=== PATIENT | male | born 1970 | race Caucasian/White ===

== ENCOUNTER 2016-11-06 10:18 | Emergency (ER) | payer OTHER ==
[~2016-11-06] VITALS: Ht 167.6 cm; Wt 69.0 kg
[~2016-11-06 10:18] MED LIST: GLIP5 PO; MULT-71 PO
[2016-11-06] MEDS ORDERED: ONDANSETRON HCL 4 MG/2 ML VIAL IVP ONE (10:45)
[2016-11-06] MEDS ORDERED: PANTOPRAZOLE SODIUM 40 MG/VIAL IVP ONE (10:45)
[2016-11-06] MEDS ORDERED: SODIUM CHLORIDE 0.9% 1,000 ML IV ONE (10:45)
[2016-11-06 11:00] LABS: BASOPHILS % (AUTO) 0.4 % (0.0-2.0); EOSINOPHILS % (AUTO) 0.2 % (1.0-6.0); HEMATOCRIT 41.6 % (41-53); HEMOGLOBIN 14.1 g/dL (13.5-17.5); MEAN CORPUSCULAR HEMOGLOBIN 29.3 pg (26.0-34.0); MEAN CORPUSCULAR HGB CONC 33.9 G/dL (31.0-37.0); MEAN CORPUSCULAR VOLUME 86 fL (80-100); MONOCYTES # (AUTO) 0.4 K/uL (0.1-1.0); MONOCYTES % (AUTO) 3.3 % (2.0-9.0); NEUTROPHILS # (AUTO) 9.6 K/uL (1.8-7.7); PLATELET COUNT (AUTO) 369 K/uL (150-450); RED BLOOD CELL COUNT(AUTO) 4.83 MIL/uL (4.50-5.90)
[2016-11-06 11:02] LABS: NEUTROPHILS % (AUTO) 87.1 % (40.0-70.0)
[2016-11-06 11:10] LABS: ANION GAP 14 mmol/L (8-16); CALCIUM, TOTAL 8.8 mg/dL (8.8-10.5); CARBON DIOXIDE 25 mmol/L (22-29); CHLORIDE 98 mmol/L (98-107); GLOMERULAR FILTR. RATE CALC > 60 mL/min (>60); POTASSIUM 4.2 mmol/L (3.5-5.1); SODIUM SERUM 137 mmol/L (136-145); UREA NITROGEN, BLOOD 14 mg/dL (7-18)
[2016-11-06 11:11] LABS: PROTHROMBIN TIME 10.2 SEC (9.4-11.6)
[2016-11-06 11:24] LABS: B-TYPE NATRIURETIC PEPTIDE 22 pg/mL (0-100)
[2016-11-06 11:36] LABS: ALANINE AMINOTRANSFERASE 48 U/L (12-78); ALBUMIN 3.7 g/dL (3.4-5.0); ASPARTATE AMINOTRANSFERASE 36 U/L (15-37); CREATINE KINASE MB 1.2 ng/mL (0-5); CREATINE KINASE, TOTAL 133 U/L (39-308); TOTAL PROTEIN, SERUM 8.2 g/dL (6.4-8.2)
[2016-11-06 11:49] LABS: APPEARANCE,URINE CLOUDY (CLEAR); GLUCOSE, URINE (UA) 500 mg/dL (NEGATIVE); KETONES,URINE 40 mg/dL (NEGATIVE); LEUKOCYTE ESTERASE ,URINE NEGATIVE (NEGATIVE); OCCULT BLOOD,URINE TRACE (NEGATIVE); PH,URINE 5.5 (5.0-8.0); PROTEIN,URINE SEE CONFIRM (NEGATIVE)
[2016-11-06 11:52] LABS: ADD UA MICROSCOPIC YES; SULFOSALICYLIC ACID,URINE 1+ (Negative)
[2016-11-06 11:55] LABS: RBC,URINE 0-2 /HPF (0-2); SQUAMOUS EPITHELIAL CELL,UR Few /LPF (None Seen); WBC,URINE None Seen /HPF (0-5)
[2016-11-06] MEDS ORDERED: LORazepam 2 MG TABLET PO ONE (13:45)
[2016-11-06 14:01] LABS: GLUCOSE COMMENT 1 Doctor Notified; GLUCOSE,POINT OF CARE 193 MG/DL (70-110)
[2016-11-06 14:57] VITALS: BP 145/94
== END 2016-11-06 15:05 | disposition home or self-care (01) ==
LOC: EMS 10:21
DX: F10.239 Alcohol dependence with withdrawal, unspecified (principal); E11.9 Type 2 diabetes mellitus without complications; I10 Essential (primary) hypertension
CPT/HCPCS: 36415; 71010; 76700; 80053; 81001; 81002; 82550; 82553; 82962; 83690; 83880; 84484; 85025; 85610; 85730; 93005; 96361; 96374; 96375; 99285; C9113; G0480; J2405; J7030

== ENCOUNTER 2017-01-31 23:10 | Inpatient (IN) | payer OTHER ==
[~2017-01-31] VITALS: Ht 162.6 cm; Wt 73.7 kg
[2017-01-31] MEDS ORDERED: SODIUM CHLORIDE 0.9% 1,000 ML IV ONE ×2 (23:40→23:45)
[2017-01-31] MEDS ORDERED: ONDANSETRON HCL 4 MG/2 ML VIAL IVP ONE (23:45)
[2017-01-31 23:55] LABS: EOSINOPHILS % (AUTO) 0.2 % (1.0-6.0); HEMATOCRIT 45.4 % (41-53); HEMOGLOBIN 14.8 g/dL (13.5-17.5); LYMPHOCYTES # (AUTO) 0.4 K/uL (1.0-4.8); LYMPHOCYTES % (AUTO) 3.6 % (22.0-44.0); MEAN CORPUSCULAR HEMOGLOBIN 29.3 pg (26.0-34.0); MEAN CORPUSCULAR HGB CONC 32.5 G/dL (31.0-37.0); MEAN CORPUSCULAR VOLUME 90 fL (80-100); MONOCYTES # (AUTO) 0.3 K/uL (0.1-1.0); MONOCYTES % (AUTO) 2.5 % (2.0-9.0); NEUTROPHILS # (AUTO) 10.1 K/uL (1.8-7.7); PLATELET COUNT (AUTO) 413 K/uL (150-450); RED BLOOD CELL COUNT(AUTO) 5.03 MIL/uL (4.50-5.90); RED CELL DISTRIBUTION WIDTH 15.3 % (11.5-14.5); WHITE BLOOD COUNT (AUTO) 10.8 K/uL (4.5-11.0)
[2017-02-01] VITALS (10 sets, daily range): BP systolic 130–160; BP diastolic 77–99
[2017-02-01 00:03] LABS: ANION GAP 20 mmol/L (8-16); CALCIUM, TOTAL 9.9 mg/dL (8.8-10.5); CARBON DIOXIDE 22 mmol/L (22-29); CHLORIDE 98 mmol/L (98-107); CREATININE 1.91 mg/dL (0.60-1.30); GLOMERULAR FILTR. RATE CALC 38 mL/min (>60); POTASSIUM 4.2 mmol/L (3.5-5.1); SODIUM SERUM 140 mmol/L (136-145); UREA NITROGEN, BLOOD 25 mg/dL (7-18)
[2017-02-01 00:09] LABS: ALANINE AMINOTRANSFERASE 46 U/L (12-78); ALBUMIN 4.3 g/dL (3.4-5.0); ASPARTATE AMINOTRANSFERASE 27 U/L (15-37); BILIRUBIN,TOTAL 0.9 mg/dL (0.1-1.0); TOTAL PROTEIN, SERUM 9.5 g/dL (6.4-8.2)
[2017-02-01 00:20] LABS: NEUTROPHILS % (AUTO) 93.7 % (40.0-70.0)
[2017-02-01] MEDS ORDERED: ONDANSETRON HCL 4 MG/2 ML VIAL IVP ONE ×2 (00:45→03:00)
[2017-02-01] MEDS ORDERED: 0.9% SODIUM CHLORIDE 10 ML SYRINGE IVP PRN (03:00)
[2017-02-01] MEDS ORDERED: LORazepam 2 MG/ML VIAL IVP ONE (03:00)
[2017-02-01] MEDS ORDERED: MAGNESIUM SULFATE 2 GM, MVI, ADULT NO.1 WITH VIT K 10 ML, THIAMINE HCL 100 MG, FOLIC AC... IV ONE ×5 (03:00)
[2017-02-01] MEDS ORDERED: ACETAMINOPHEN 325 MG TABLET PO PRN ×2 (03:00→23:45)
[2017-02-01] MEDS ORDERED: ONDANSETRON HCL 4 MG/2 ML VIAL IVP PRN ×3 (03:00→23:45)
[2017-02-01] MEDS ORDERED: PANTOPRAZOLE SODIUM 80 MG in SODIUM CHLORIDE 0.9% 50 ML IV ONE (03:15)
[2017-02-01 03:32] LABS: GLUCOSE,POINT OF CARE 259 MG/DL (70-110)
[2017-02-01] MEDS ORDERED: SODIUM CHLORIDE 0.9% 250 ML IV ONE (03:47)
[2017-02-01 05:07] LABS: GLUCOSE COMMENT 1 Received Meds; GLUCOSE,POINT OF CARE 275 MG/DL (70-110)
[2017-02-01] MEDS ORDERED: LORazepam 2 MG/ML VIAL IVP PRN (06:45)
[2017-02-01] MEDS ORDERED: DEXTROSE 50%-WATER 25 GM/50 ML SYRINGE IVP PRN (07:00)
[2017-02-01 07:38] LABS: BASOPHILS % (AUTO) 0.1 % (0.0-2.0); EOSINOPHILS % (AUTO) 0 % (1.0-6.0); HEMATOCRIT 38.8 % (41-53); HEMOGLOBIN 12.8 g/dL (13.5-17.5); LYMPHOCYTES # (AUTO) 0.7 K/uL (1.0-4.8); LYMPHOCYTES % (AUTO) 5.6 % (22.0-44.0); MEAN CORPUSCULAR HEMOGLOBIN 29.9 pg (26.0-34.0); MEAN CORPUSCULAR VOLUME 91 fL (80-100); MONOCYTES # (AUTO) 0.9 K/uL (0.1-1.0); MONOCYTES % (AUTO) 6.8 % (2.0-9.0); NEUTROPHILS # (AUTO) 11.7 K/uL (1.8-7.7); PLATELET COUNT (AUTO) 349 K/uL (150-450); RED BLOOD CELL COUNT(AUTO) 4.28 MIL/uL (4.50-5.90); RED CELL DISTRIBUTION WIDTH 15.2 % (11.5-14.5); WHITE BLOOD COUNT (AUTO) 13.4 K/uL (4.5-11.0)
[2017-02-01 07:39] LABS: NEUTROPHILS % (AUTO) 87.5 % (40.0-70.0)
[2017-02-01 07:55] LABS: ALBUMIN 3.5 g/dL (3.4-5.0); BILIRUBIN,TOTAL 0.8 mg/dL (0.1-1.0); CALCIUM, TOTAL 8.3 mg/dL (8.8-10.5); CREATININE 1.5 mg/dL (0.60-1.30); PHOSPHORUS 3.2 mg/dL (2.5-4.9); POTASSIUM 3.8 mmol/L (3.5-5.1); TOTAL PROTEIN, SERUM 7.9 g/dL (6.4-8.2)
[2017-02-01] MEDS: FOLIC ACID 1 MG TABLET PO SCH (08:27)
[2017-02-01] MEDS: MULTIVITAMINS WITH MINERALS, THERAPEUTIC TABLET PO SCH (08:27)
[2017-02-01] MEDS: THIAMINE HCL 100 MG TABLET PO SCH (08:27)
[2017-02-01] MEDS: SODIUM CHLORIDE 0.9% 1,000 ML IV SCH ×2 (08:27→21:48)
[2017-02-01] MEDS ORDERED: ChlordiazePOXIDE HCL 25 MG CAPSULE PO ONE (09:00)
[2017-02-01] MEDS: INSULIN ASPART 100 UNITS/ML SQ PRN ×3 (12:05→21:50)
[2017-02-01] MEDS: ChlordiazePOXIDE HCL 25 MG CAPSULE PO SCH ×3 (12:05→23:49)
[2017-02-01] MEDS ORDERED: MORPHINE SULFATE 4 MG/ML SYRINGE IVP PRN (23:45)
[2017-02-01] MEDS ORDERED: ZOLPIDEM TARTRATE 5 MG TABLET PO PRN (23:45)
[2017-02-01] MEDS ORDERED: MAGNESIUM HYDROXIDE SUSPENSION 30 ML UDCUP PO PRN (23:45)
[2017-02-01] MEDS ORDERED: ALBUTEROL SULFATE 2.5 MG/0.5 ML NEB SOLUTION NEB PRN (23:45)
[2017-02-01] MEDS ORDERED: BISACODYL 10 MG RECTAL RECTAL SUPPOSITORY PR PRN (23:45)
[2017-02-01] MEDS ORDERED: IPRATROPIUM BROMIDE 0.5 MG/2.5 ML NEB SOLUTION NEB PRN (23:45)
[2017-02-01] MEDS ORDERED: HYDROCODONE/ACETAMINOPHEN 5-325 MG TABLET PO PRN (23:45)
[2017-02-01] MEDS ORDERED: MORPHINE SULFATE 2 MG/ML SYRINGE IVP PRN (23:45)
[2017-02-01 23:47] LABS: GLUCOSE,POINT OF CARE 156 MG/DL (70-110)
[2017-02-01] MEDS: MetroNIDAZOLE 500 MG TABLET PO SCH (23:49)
[2017-02-01] MEDS: HEPARIN SODIUM,PORCINE 5,000 UNITS/ML VIAL SQ SCH (23:59)
[2017-02-02 05:24] VITALS: BP 131/86
[2017-02-02] MEDS: ChlordiazePOXIDE HCL 25 MG CAPSULE PO SCH ×4 (06:06→23:47)
[2017-02-02] MEDS: INSULIN ASPART 100 UNITS/ML SQ PRN ×3 (06:06→20:55)
[2017-02-02 06:52] LABS: GLUCOSE,POINT OF CARE 145 MG/DL (70-110)
[2017-02-02 07:15] VITALS: BP 112/78
[2017-02-02] MEDS: THIAMINE HCL 100 MG TABLET PO SCH (08:38)
[2017-02-02] MEDS: PANTOPRAZOLE SODIUM 40 MG/VIAL IVP SCH (08:38)
[2017-02-02] MEDS: HEPARIN SODIUM,PORCINE 5,000 UNITS/ML VIAL SQ SCH ×3 (08:38→23:47)
[2017-02-02] MEDS: FOLIC ACID 1 MG TABLET PO SCH (08:38)
[2017-02-02] MEDS: MetroNIDAZOLE 500 MG TABLET PO SCH ×3 (08:38→20:54)
[2017-02-02] MEDS: MULTIVITAMINS WITH MINERALS, THERAPEUTIC TABLET PO SCH (08:38)
[2017-02-02] MEDS: DOCUSATE SODIUM 100 MG CAPSULE PO SCH ×2 (09:00→20:54)
[2017-02-02 09:31] LABS: BASOPHILS % (AUTO) 0.5 % (0.0-2.0); EOSINOPHILS % (AUTO) 1.2 % (1.0-6.0); HEMATOCRIT 37.8 % (41-53); HEMOGLOBIN 12.4 g/dL (13.5-17.5); LYMPHOCYTES % (AUTO) 13.6 % (22.0-44.0); MEAN CORPUSCULAR HEMOGLOBIN 29.6 pg (26.0-34.0); MEAN CORPUSCULAR HGB CONC 32.7 G/dL (31.0-37.0); MEAN CORPUSCULAR VOLUME 91 fL (80-100); MONOCYTES # (AUTO) 0.4 K/uL (0.1-1.0); MONOCYTES % (AUTO) 4.8 % (2.0-9.0); NEUTROPHILS # (AUTO) 6.1 K/uL (1.8-7.7); NEUTROPHILS % (AUTO) 79.9 % (40.0-70.0); PLATELET COUNT (AUTO) 290 K/uL (150-450); RED BLOOD CELL COUNT(AUTO) 4.18 MIL/uL (4.50-5.90); RED CELL DISTRIBUTION WIDTH 15.1 % (11.5-14.5); WHITE BLOOD COUNT (AUTO) 7.7 K/uL (4.5-11.0)
[2017-02-02 09:38] LABS: ANION GAP 10 mmol/L (8-16); CALCIUM, TOTAL 7.7 mg/dL (8.8-10.5); CARBON DIOXIDE 25 mmol/L (22-29); CHLORIDE 101 mmol/L (98-107); CREATININE 1.19 mg/dL (0.60-1.30); GLOMERULAR FILTR. RATE CALC > 60 mL/min (>60); POTASSIUM 3.6 mmol/L (3.5-5.1); SODIUM SERUM 136 mmol/L (136-145); UREA NITROGEN, BLOOD 19 mg/dL (7-18)
[2017-02-02 09:45] LABS: ALANINE AMINOTRANSFERASE 34 U/L (12-78); ALBUMIN 3.2 g/dL (3.4-5.0); ASPARTATE AMINOTRANSFERASE 25 U/L (15-37); BILIRUBIN,TOTAL 0.7 mg/dL (0.1-1.0); TOTAL PROTEIN, SERUM 6.9 g/dL (6.4-8.2)
[2017-02-02 10:59] LABS: GLUCOSE,POINT OF CARE 182 MG/DL (70-110)
[2017-02-02 10:59] LABS: GLUCOSE,POINT OF CARE 249 MG/DL (70-110)
[2017-02-02 11:37] VITALS: BP 119/75
[2017-02-02 11:48] LABS: APPEARANCE,URINE CLEAR (CLEAR); GLUCOSE, URINE (UA) NEGATIVE (NEGATIVE); KETONES,URINE TRACE mg/dL (NEGATIVE); LEUKOCYTE ESTERASE ,URINE NEGATIVE (NEGATIVE); OCCULT BLOOD,URINE NEGATIVE (NEGATIVE); PROTEIN,URINE TRACE (NEGATIVE)
[2017-02-02 11:53] LABS: ADD UA MICROSCOPIC YES
[2017-02-02] MEDS: SODIUM CHLORIDE 0.9% 1,000 ML IV SCH (11:55)
[2017-02-02 12:01] LABS: RBC,URINE None Seen /HPF (0-2); WBC,URINE 0-2 /HPF (0-5)
[2017-02-02 13:17] LABS: GLUCOSE COMMENT 1 Received Meds; GLUCOSE,POINT OF CARE 165 MG/DL (70-110)
[2017-02-02 16:00] VITALS: BP 134/95
[2017-02-02 17:37] LABS: GLUCOSE COMMENT 1 Received Meds; GLUCOSE,POINT OF CARE 157 MG/DL (70-110)
[2017-02-02 19:16] VITALS: BP 141/88
[2017-02-02 23:10] VITALS: BP 133/87
[2017-02-03] MEDS: SODIUM CHLORIDE 0.9% 1,000 ML IV SCH (01:28)
[2017-02-03 04:17] LABS: GLUCOSE,POINT OF CARE 202 MG/DL (70-110)
[2017-02-03 04:44] VITALS: BP 130/86
[2017-02-03] MEDS: ChlordiazePOXIDE HCL 25 MG CAPSULE PO SCH ×2 (06:42→11:55)
[2017-02-03 06:52] LABS: GLUCOSE,POINT OF CARE 199 MG/DL (70-110)
[2017-02-03 07:03] VITALS: BP 135/86
[2017-02-03] MEDS: HEPARIN SODIUM,PORCINE 5,000 UNITS/ML VIAL SQ SCH (08:14)
[2017-02-03] MEDS: DOCUSATE SODIUM 100 MG CAPSULE PO SCH (08:14)
[2017-02-03] MEDS: PANTOPRAZOLE SODIUM 40 MG/VIAL IVP SCH (08:14)
[2017-02-03] MEDS: MULTIVITAMINS WITH MINERALS, THERAPEUTIC TABLET PO SCH (08:15)
[2017-02-03] MEDS: FOLIC ACID 1 MG TABLET PO SCH (08:15)
[2017-02-03] MEDS: THIAMINE HCL 100 MG TABLET PO SCH (08:15)
[2017-02-03] MEDS: MetroNIDAZOLE 500 MG TABLET PO SCH ×2 (08:15→15:29)
[2017-02-03 11:23] LABS: GLUCOSE,POINT OF CARE 214 MG/DL (70-110)
[2017-02-03] MEDS: INSULIN ASPART 100 UNITS/ML SQ PRN (11:56)
[2017-02-03 12:01] VITALS: BP 129/92
[2017-02-03 15:04] VITALS: BP 141/94
[2017-02-03] MEDS ORDERED: METR500 PO (15:09)
[2017-02-03] MEDS ORDERED: DSS100 PO (15:09)
[2017-02-03] MEDS ORDERED: FOLI1 PO (15:10)
[2017-02-03] MEDS ORDERED: MULT-1203 PO (15:10)
== END 2017-02-03 15:40 | disposition home or self-care (01) | DRG 248 ==
LOC: EMS 23:11 → 6N 02-01 03:11
PROVIDERS: ADMIT Hospitalist; ATTEND Hospitalist
DX: A04.7 Enterocolitis due to Clostridium difficile (principal); E11.65 Type 2 diabetes mellitus with hyperglycemia; I10 Essential (primary) hypertension; E88.09 Other disorders of plasma-protein metabolism, not elsewhere classified; E83.42 Hypomagnesemia; E86.0 Dehydration; F41.9 Anxiety disorder, unspecified; R19.7 Diarrhea, unspecified
CPT/HCPCS: 82962; 83735; 84100; 87045; 87324; 87449; 93005; 96361; 96365; 96368; 96375; 96376; 99285; C9113; G0480; J1644; J2060; J2405; J3411; J3475; J3490; J7030; J7050

== ENCOUNTER 2017-07-18 21:52 | Inpatient (IN) | payer OTHER ==
[~2017-07-18] VITALS: Ht 162.6 cm; Wt 76.9 kg
[~2017-07-18 21:52] MED LIST changes: +DSS100 PO; +FOLI1 PO; -GLIP5 PO; +METR500 PO; +MULT-1203 PO; -MULT-71 PO
[2017-07-18 22:03] LABS: GLUCOSE,POINT OF CARE 454 MG/DL (70-110)
[2017-07-18 22:45] LABS: APPEARANCE,URINE CLEAR (CLEAR); BILIRUBIN,URINE NEGATIVE (NEGATIVE); GLUCOSE, URINE (UA) >=1000 mg/dL (NEGATIVE); KETONES,URINE 40 mg/dL (NEGATIVE); LEUKOCYTE ESTERASE ,URINE NEGATIVE (NEGATIVE); NITRATE,URINE NEGATIVE (NEGATIVE); OCCULT BLOOD,URINE SMALL (NEGATIVE); PH,URINE 6.5 (5.0-8.0); PROTEIN,URINE SEE CONFIRM (NEGATIVE); UROBILINOGEN,URINE 0.2 mg/dL (<=1.0)
[2017-07-18 22:51] LABS: AMPHET/METH SCREEN,URINE NEGATIVE (NEGATIVE); BARBITURATE SCREEN, URINE NEGATIVE (NEGATIVE); BENZODIAZEPINES SCREEN,URINE NEGATIVE (NEGATIVE); CANNABINOID SCREEN,URINE NEGATIVE (NEGATIVE); COCAINE SCREEN,URINE NEGATIVE (NEGATIVE); METHADONE SCREEN, URINE NEGATIVE (NEGATIVE); OPIATE SCREEN,URINE NEGATIVE (NEGATIVE)
[2017-07-18 22:54] LABS: PHENCYCLIDINE SCREEN,URINE NEGATIVE (NEGATIVE)
[2017-07-18 22:58] LABS: SULFOSALICYLIC ACID,URINE 2+ (Negative)
[2017-07-18] MEDS ORDERED: SODIUM CHLORIDE 0.9% 2,000 ML IV ONE (23:00)
[2017-07-18] MEDS ORDERED: INSULIN REGULAR, HUMAN 100 UNITS/ML IVP ONE (23:00)
[2017-07-18] MEDS ORDERED: ONDANSETRON HCL 4 MG/2 ML VIAL IVP ONE (23:00)
[2017-07-18 23:01] LABS: BACTERIA,URINE Few /HPF (None Seen); SQUAMOUS EPITHELIAL CELL,UR Few /LPF (None Seen); WBC,URINE 0-2 /HPF (0-5)
[2017-07-18 23:25] LABS: BASOPHILS % (AUTO) 0.3 % (0.0-2.0); EOSINOPHILS % (AUTO) 0 % (1.0-6.0); HEMATOCRIT 41.1 % (41-53); HEMOGLOBIN 14.3 g/dL (13.5-17.5); LYMPHOCYTES # (AUTO) 0.4 K/uL (1.0-4.8); MEAN CORPUSCULAR HEMOGLOBIN 31.4 pg (26.0-34.0); MEAN CORPUSCULAR HGB CONC 34.7 G/dL (31.0-37.0); MEAN CORPUSCULAR VOLUME 90 fL (80-100); MONOCYTES # (AUTO) 0.1 K/uL (0.1-1.0); MONOCYTES % (AUTO) 0.7 % (2.0-9.0); NEUTROPHILS # (AUTO) 11.4 K/uL (1.8-7.7); PLATELET COUNT (AUTO) 328 K/uL (150-450); RED BLOOD CELL COUNT(AUTO) 4.55 MIL/uL (4.50-5.90); RED CELL DISTRIBUTION WIDTH 13.5 % (11.5-14.5)
[2017-07-18 23:45] LABS: ANION GAP 18 mmol/L (8-16); CALCIUM, TOTAL 9.5 mg/dL (8.8-10.5); CARBON DIOXIDE 22 mmol/L (22-29); CHLORIDE 97 mmol/L (98-107); CREATININE 1.68 mg/dL (0.60-1.30); GLOMERULAR FILTR. RATE CALC 44 mL/min (>60); GLUCOSE,RANDOM 340 mg/dL (70-110); POTASSIUM 4.3 mmol/L (3.5-5.1); SODIUM SERUM 137 mmol/L (136-145); UREA NITROGEN, BLOOD 26 mg/dL (7-18)
[2017-07-18] MEDS ORDERED: ACETAMINOPHEN 325 MG TABLET PO PRN (23:45)
[2017-07-18] MEDS ORDERED: LORazepam 2 MG/ML VIAL IVP ONE (23:45)
[2017-07-18] MEDS ORDERED: 0.9% SODIUM CHLORIDE 10 ML SYRINGE IVP PRN (23:45)
[2017-07-18] MEDS ORDERED: THIAMINE HCL 100 MG/ML 2ML VIAL IVP ONE (23:45)
[2017-07-18] MEDS ORDERED: ONDANSETRON HCL 4 MG/2 ML VIAL IVP PRN (23:45)
[2017-07-18 23:50] LABS: ALANINE AMINOTRANSFERASE 21 U/L (12-78); ALBUMIN 3.9 g/dL (3.4-5.0); ALKALINE PHOSPHATASE 78 U/L (46-116); ASPARTATE AMINOTRANSFERASE < 5 U/L (15-37); BILIRUBIN,TOTAL 1.1 mg/dL (0.1-1.0); LIPASE 199 U/L (73-393); TOTAL PROTEIN, SERUM 8.8 g/dL (6.4-8.2)
[2017-07-19] VITALS (7 sets, daily range): BP systolic 137–158; BP diastolic 85–95
[2017-07-19 00:08] LABS: GLUCOSE,POINT OF CARE 214 MG/DL (70-110)
[2017-07-19 00:35] LABS: ABG A-A DIFF O2 35.8 mmHg (10-20.0); ABG BASE EXCESS 0.4 mmol/L (-2.0-3.0); ABG CARBOXYHEMOGLOBIN 1.6 % (0.0-1.5); ABG HCO3 25.2 mmol/L (22.0-26.0); ABG METHEMOGLOBIN 0.3 % (0.0-1.5); ABG OXYGEN CONTENT 18.1 mL/dL (15.0-23.0); ABG OXYGEN SATURATION 95.2 % (95.0-98.0); ABG OXYHEMOGLOBIN 93.4 % (94.0-100.0); ABG PCO2 34 mmHg (35-45); ABG PH 7.464 (7.35-7.450); ABG TOTAL HEMOGLOBIN 13.8 G/dL (12.0-18.0); PO2, ARTERIAL BG 72.7 mmHg (88.0-96.0); SOURCE, BLOOD GAS ARTERIAL; TEMPERATURE, FAHRENHEIT, BG 98.5 FAHREN (96.0-98.6)
[2017-07-19 00:36] LABS: O2 DEVICE,BLOOD GAS ROOM AIR (ROOM AIR); SITE, BLOOD GAS LFT RADIAL
[2017-07-19] MEDS ORDERED: DEXTROSE 50%-WATER 25 GM/50 ML SYRINGE IVP PRN (04:30)
[2017-07-19] MEDS: LORazepam 2 MG/ML VIAL IVP PRN (05:55)
[2017-07-19] MEDS: INSULIN ASPART 100 UNITS/ML SQ PRN ×4 (05:57→20:03)
[2017-07-19] MEDS: [UNRECOGNIZED DRUG - REMARK] IV SCH ×15 (06:29→22:30)
[2017-07-19 07:57] LABS: BASOPHILS # (AUTO) 0.03 K/uL (0.00-0.20); BASOPHILS % (AUTO) 0.2 % (0.0-2.0); EOSINOPHILS % (AUTO) 0.03 % (1.0-6.0); HEMATOCRIT 36.8 % (41-53); HEMOGLOBIN 12.7 g/dL (13.5-17.5); LYMPHOCYTES # (AUTO) 1.2 K/uL (1.0-4.8); LYMPHOCYTES % (AUTO) 9.8 % (22.0-44.0); MEAN CORPUSCULAR HEMOGLOBIN 31.5 pg (26.0-34.0); MEAN CORPUSCULAR HGB CONC 34.5 G/dL (31.0-37.0); MEAN CORPUSCULAR VOLUME 91 fL (80-100); MONOCYTES # (AUTO) 0.7 K/uL (0.1-1.0); MONOCYTES % (AUTO) 5.8 % (2.0-9.0); NEUTROPHILS % (AUTO) 84.1 % (40.0-70.0); PLATELET COUNT (AUTO) 272 K/uL (150-450); RED BLOOD CELL COUNT(AUTO) 4.03 MIL/uL (4.50-5.90); RED CELL DISTRIBUTION WIDTH 13.2 % (11.5-14.5)
[2017-07-19 08:03] LABS: HEMOGLOBIN A1C 10.9 % (4.5-6.2)
[2017-07-19 08:25] LABS: ALBUMIN 3.4 g/dL (3.4-5.0); BILIRUBIN,TOTAL 0.7 mg/dL (0.1-1.0); CALCIUM, TOTAL 8.5 mg/dL (8.8-10.5); CHOL/HDL RATIO 4.4 (4.2-7.3); CREATININE 1.47 mg/dL (0.60-1.30); FREE T4 (FREE THYROXINE) 0.75 ng/dL (0.76-1.46); MAGNESIUM 2.6 mg/dL (1.80-2.40); POTASSIUM 3.9 mmol/L (3.5-5.1); THYROID STIMULATING HORMONE 0.72 uIU/mL (0.36-3.74); TOTAL PROTEIN, SERUM 7.2 g/dL (6.4-8.2)
[2017-07-19] MEDS ORDERED: SODIUM CHLORIDE 0.9% 1,000 ML IV ONE ×2 (13:51→22:27)
[2017-07-19 19:49] LABS: GLUCOMETER DEV NAME(LOC) 5S 1L; GLUCOSE,POINT OF CARE 337 MG/DL (70-110)
[2017-07-20] MEDS: LORazepam 2 MG/ML VIAL IVP PRN (01:54)
[2017-07-20 03:59] VITALS: BP 125/85
[2017-07-20] MEDS: [UNRECOGNIZED DRUG - REMARK] IV SCH ×5 (06:07)
[2017-07-20] MEDS: INSULIN ASPART 100 UNITS/ML SQ PRN ×2 (06:10→12:01)
[2017-07-20 07:23] VITALS: BP 147/92
[2017-07-20 07:56] LABS: GLUCOMETER DEV NAME(LOC) 5S 2N; GLUCOSE,POINT OF CARE 279 MG/DL (70-110)
[2017-07-20 07:57] LABS: GLUCOMETER DEV NAME(LOC) 5S 2N; GLUCOSE,POINT OF CARE 186 MG/DL (70-110)
[2017-07-20 08:07] LABS: GLUCOMETER DEV NAME(LOC) 5S 2N; GLUCOSE,POINT OF CARE 170 MG/DL (70-110)
[2017-07-20 08:07] LABS: GLUCOMETER DEV NAME(LOC) 5S 2N; GLUCOSE,POINT OF CARE 153 MG/DL (70-110)
[2017-07-20 08:19] LABS: BASOPHILS # (AUTO) 0.03 K/uL (0.00-0.20); BASOPHILS % (AUTO) 0.5 % (0.0-2.0); EOSINOPHILS # (AUTO) 0.05 K/uL (0.00-0.70); EOSINOPHILS % (AUTO) 0.83 % (1.0-6.0); HEMATOCRIT 38.1 % (41-53); HEMOGLOBIN 13.1 g/dL (13.5-17.5); LYMPHOCYTES # (AUTO) 1.6 K/uL (1.0-4.8); LYMPHOCYTES % (AUTO) 25.4 % (22.0-44.0); MEAN CORPUSCULAR HEMOGLOBIN 31.4 pg (26.0-34.0); MEAN CORPUSCULAR HGB CONC 34.3 G/dL (31.0-37.0); MEAN CORPUSCULAR VOLUME 92 fL (80-100); MONOCYTES # (AUTO) 0.4 K/uL (0.1-1.0); MONOCYTES % (AUTO) 6.9 % (2.0-9.0); NEUTROPHILS # (AUTO) 4.2 K/uL (1.8-7.7); NEUTROPHILS % (AUTO) 66.4 % (40.0-70.0); PLATELET COUNT (AUTO) 234 K/uL (150-450); RED BLOOD CELL COUNT(AUTO) 4.16 MIL/uL (4.50-5.90); RED CELL DISTRIBUTION WIDTH 13.3 % (11.5-14.5)
[2017-07-20 08:35] LABS: ANION GAP 6 mmol/L (8-16); CARBON DIOXIDE 26 mmol/L (22-29); CHLORIDE 104 mmol/L (98-107); CREATININE 1.01 mg/dL (0.60-1.30); GLOMERULAR FILTR. RATE CALC > 60 mL/min (>60); GLUCOSE,RANDOM 130 mg/dL (70-110); POTASSIUM 3.6 mmol/L (3.5-5.1); SODIUM SERUM 136 mmol/L (136-145); UREA NITROGEN, BLOOD 15 mg/dL (7-18)
[2017-07-20 11:24] VITALS: BP 150/100
[2017-07-20 14:52] LABS: GLUCOMETER DEV NAME(LOC) 5S 1L; GLUCOSE,POINT OF CARE 187 MG/DL (70-110)
[2017-07-20 15:33] VITALS: BP 150/93
[2017-07-20] MEDS ORDERED: METF500T4 PO (16:31)
[2017-07-20] MEDS ORDERED: LISI-662 PO (16:32)
== END 2017-07-20 16:45 | disposition home or self-care (01) | DRG 775 ==
LOC: EMS 21:53 → 5S 07-19 00:23
PROVIDERS: ADMIT Internal Medicine; ATTEND Internal Medicine
DX: F10.239 Alcohol dependence with withdrawal, unspecified (principal); N17.9 Acute kidney failure, unspecified; E87.2 Acidosis; R65.10 Systemic inflammatory response syndrome (SIRS) of non-infectious origin without acute organ dysfunction; E11.65 Type 2 diabetes mellitus with hyperglycemia; E86.0 Dehydration; I10 Essential (primary) hypertension; Z59.0 Homelessness
CPT/HCPCS: 82805; 82962; 83036; 83735; 84439; 84443; 93005; 96361; 96374; 96375; 97161; 97165; 97530; 99285; G0480; J1815; J2060; J2405; J3411; J3475; J3490; J7030

== ENCOUNTER 2017-08-27 23:11 | Emergency (ER) | payer OTHER ==
[~2017-08-27] VITALS: Ht 172.7 cm; Wt 77.3 kg
[~2017-08-27 23:11] MED LIST changes: -DSS100 PO; -FOLI1 PO; +LISI-662 PO; +METF500T4 PO; -METR500 PO; -MULT-1203 PO
[2017-08-28] MEDS ORDERED: ONDANSETRON HCL 4 MG/2 ML VIAL IVP ONE (00:45)
[2017-08-28] MEDS ORDERED: SODIUM CHLORIDE 0.9% 1,000 ML IV ONE (00:45)
[2017-08-28 00:54] LABS: BASOPHILS % (AUTO) 0.5 % (0.0-2.0); EOSINOPHILS % (AUTO) 1.1 % (1.0-6.0); HEMATOCRIT 40.9 % (41-53); HEMOGLOBIN 14.3 g/dL (13.5-17.5); LYMPHOCYTES # (AUTO) 2.4 K/uL (1.0-4.8); LYMPHOCYTES % (AUTO) 20.7 % (22.0-44.0); MEAN CORPUSCULAR HEMOGLOBIN 31.6 pg (26.0-34.0); MEAN CORPUSCULAR HGB CONC 34.9 G/dL (31.0-37.0); MEAN CORPUSCULAR VOLUME 90 fL (80-100); MONOCYTES # (AUTO) 0.6 K/uL (0.1-1.0); MONOCYTES % (AUTO) 5.4 % (2.0-9.0); NEUTROPHILS # (AUTO) 8.5 K/uL (1.8-7.7); NEUTROPHILS % (AUTO) 72.3 % (40.0-70.0); PLATELET COUNT (AUTO) 441 K/uL (150-450); RED BLOOD CELL COUNT(AUTO) 4.52 MIL/uL (4.50-5.90); RED CELL DISTRIBUTION WIDTH 13.3 % (11.5-14.5); WHITE BLOOD COUNT (AUTO) 11.7 K/uL (4.5-11.0)
[2017-08-28 01:03] LABS: ANION GAP 15 mmol/L (8-16); CALCIUM, TOTAL 9.2 mg/dL (8.8-10.5); CARBON DIOXIDE 24 mmol/L (22-29); CHLORIDE 92 mmol/L (98-107); CREATININE 1.17 mg/dL (0.60-1.30); GLOMERULAR FILTR. RATE CALC > 60 mL/min (>60); POTASSIUM 3.8 mmol/L (3.5-5.1); SODIUM SERUM 131 mmol/L (136-145); UREA NITROGEN, BLOOD 5 mg/dL (7-18)
[2017-08-28 01:10] LABS: ALANINE AMINOTRANSFERASE 23 U/L (12-78); ALBUMIN 3.9 g/dL (3.4-5.0); ASPARTATE AMINOTRANSFERASE 18 U/L (15-37); BILIRUBIN,TOTAL 0.4 mg/dL (0.1-1.0); TOTAL PROTEIN, SERUM 8.6 g/dL (6.4-8.2)
[2017-08-28 01:11] LABS: ADD UA MICROSCOPIC YES; APPEARANCE,URINE CLEAR (CLEAR); GLUCOSE, URINE (UA) NEGATIVE (NEGATIVE); KETONES,URINE NEGATIVE (NEGATIVE); LEUKOCYTE ESTERASE ,URINE NEGATIVE (NEGATIVE); OCCULT BLOOD,URINE SMALL (NEGATIVE); PH,URINE 5.5 (5.0-8.0); PROTEIN,URINE SEE CONFIRM (NEGATIVE)
[2017-08-28 02:09] LABS: SULFOSALICYLIC ACID,URINE 1+ (Negative)
[2017-08-28 02:10] LABS: WBC,URINE 0-2 /HPF (0-5)
[2017-08-28 04:15] VITALS: BP 124/83
== END 2017-08-28 04:33 | disposition home or self-care (01) ==
LOC: EMS 23:12
DX: F10.129 Alcohol abuse with intoxication, unspecified (principal); E11.9 Type 2 diabetes mellitus without complications; I10 Essential (primary) hypertension; Y90.8 Blood alcohol level of 240 mg/100 ml or more
CPT/HCPCS: 36415; 80053; 81001; 83690; 85025; 93005; 96361; 96374; 99285; G0480; J2405; J7030

== ENCOUNTER 2017-11-30 12:18 | Emergency (ER) | payer OTHER ==
[~2017-11-30] VITALS: Ht 162.6 cm; Wt 72.7 kg
[2017-11-30 12:52] LABS: GLUCOSE,POINT OF CARE 216 MG/DL (70-110)
[2017-11-30] MEDS ORDERED: LISINOPRIL 10 MG TABLET PO ONE (15:00)
[2017-11-30] MEDS ORDERED: CYANOCOBALAMIN 1,000 MCG/ML VIAL IM ONE ×2 (15:00→15:30)
[2017-11-30] MEDS ORDERED: THIAMINE HCL 100 MG/ML 2ML VIAL IM ONE (15:00)
[2017-11-30] MEDS ORDERED: MetFORMIN HCL 500 MG TABLET PO ONE (15:00)
[2017-11-30] MEDS ORDERED: THIAMINE HCL 100 MG/ML 2ML VIAL IVP ONE (15:30)
[2017-11-30 16:41] VITALS: BP 174/94
== END 2017-11-30 16:51 | disposition home or self-care (01) ==
LOC: EMS 12:19
DX: I10 Essential (primary) hypertension (principal); E11.9 Type 2 diabetes mellitus without complications; R11.2 Nausea with vomiting, unspecified; F10.20 Alcohol dependence, uncomplicated; Z91.19 Patient's noncompliance with other medical treatment and regimen; Z59.0 Homelessness
CPT/HCPCS: 82962; 96372; 96374; 99285; J3411; J3420

== ENCOUNTER 2018-01-15 11:10 | Emergency (ER) | payer OTHER ==
[~2018-01-15] VITALS: Ht 162.6 cm; Wt 68.2 kg
[~2018-01-15 11:10] MED LIST changes: -METF500T4 PO; +METF500T6 PO
[2018-01-15] MEDS ORDERED: ONDANSETRON HCL 4 MG/2 ML VIAL IVP ONE (11:30)
[2018-01-15] MEDS ORDERED: KETOROLAC TROMETHAMINE 30 MG/ML VIAL IVP ONE (11:30)
[2018-01-15] MEDS ORDERED: SODIUM CHLORIDE 0.9% 1,000 ML IV ONE ×2 (11:30→12:45)
[2018-01-15 12:01] LABS: BASOPHILS % (AUTO) 0.7 % (0.0-2.0); EOSINOPHILS % (AUTO) 0.3 % (1.0-6.0); HEMATOCRIT 42.6 % (41-53); HEMOGLOBIN 14.9 g/dL (13.5-17.5); LYMPHOCYTES # (AUTO) 1.2 K/uL (1.0-4.8); LYMPHOCYTES % (AUTO) 12.7 % (22.0-44.0); MEAN CORPUSCULAR HEMOGLOBIN 30.3 pg (26.0-34.0); MEAN CORPUSCULAR HGB CONC 35.1 G/dL (31.0-37.0); MEAN CORPUSCULAR VOLUME 86 fL (80-100); MONOCYTES # (AUTO) 0.4 K/uL (0.1-1.0); MONOCYTES % (AUTO) 4.2 % (2.0-9.0); NEUTROPHILS % (AUTO) 82.1 % (40.0-70.0); PLATELET COUNT (AUTO) 395 K/uL (150-450); RED BLOOD CELL COUNT(AUTO) 4.93 MIL/uL (4.50-5.90); RED CELL DISTRIBUTION WIDTH 13.4 % (11.5-14.5)
[2018-01-15 12:09] LABS: ANION GAP 17 mmol/L (8-16); CALCIUM, TOTAL 9.7 mg/dL (8.8-10.5); CARBON DIOXIDE 22 mmol/L (22-29); CHLORIDE 96 mmol/L (98-107); CREATININE 1.33 mg/dL (0.60-1.30); GLOMERULAR FILTR. RATE CALC 58 mL/min (>60); GLUCOSE,RANDOM 334 mg/dL (70-110); POTASSIUM 4.2 mmol/L (3.5-5.1); SODIUM SERUM 135 mmol/L (136-145); UREA NITROGEN, BLOOD 19 mg/dL (7-18)
[2018-01-15 12:15] LABS: ALANINE AMINOTRANSFERASE 20 U/L (12-78); ALBUMIN 3.7 g/dL (3.4-5.0); ALKALINE PHOSPHATASE 96 U/L (46-116); ASPARTATE AMINOTRANSFERASE 5 U/L (15-37); BILIRUBIN,TOTAL 0.8 mg/dL (0.1-1.0); LIPASE 137 U/L (73-393); TOTAL PROTEIN, SERUM 8.6 g/dL (6.4-8.2)
[2018-01-15 12:33] LABS: APPEARANCE,URINE CLEAR (CLEAR); GLUCOSE, URINE (UA) >=1000 mg/dL (NEGATIVE); KETONES,URINE 40 mg/dL (NEGATIVE); LEUKOCYTE ESTERASE ,URINE NEGATIVE (NEGATIVE); NITRATE,URINE NEGATIVE (NEGATIVE); OCCULT BLOOD,URINE SMALL (NEGATIVE); PH,URINE 5.5 (5.0-8.0); PROTEIN,URINE SEE CONFIRM (NEGATIVE); UROBILINOGEN,URINE 0.2 mg/dL (<=1.0)
[2018-01-15 12:42] LABS: BILIRUBIN,URINE PRELIM. POSITIVE (NEGATIVE)
[2018-01-15 12:44] LABS: BACTERIA,URINE None Seen /HPF (None Seen); SULFOSALICYLIC ACID,URINE 3+ (Negative); WBC,URINE None Seen /HPF (0-5)
[2018-01-15 13:47] LABS: GLUCOSE,POINT OF CARE 278 MG/DL (70-110)
[2018-01-15 14:37] VITALS: BP 132/97
== END 2018-01-15 15:02 | disposition home or self-care (01) ==
LOC: EMS 11:12
DX: R10.84 Generalized abdominal pain (principal); R11.2 Nausea with vomiting, unspecified; E11.9 Type 2 diabetes mellitus without complications; I10 Essential (primary) hypertension; Z79.84 Long term (current) use of oral hypoglycemic drugs; Z79.899 Other long term (current) drug therapy; Z59.0 Homelessness
CPT/HCPCS: 36415; 80053; 81001; 82962; 83690; 85025; 96361; 96374; 96375; 99285; G0480; J1885; J2405; J7030

== ENCOUNTER 2018-05-03 20:45 | Emergency (ER) | payer OTHER ==
[~2018-05-03] VITALS: Ht 162.6 cm; Wt 68.2 kg
[2018-05-03 21:24] LABS: GLUCOSE,POINT OF CARE 162 MG/DL (70-110)
[2018-05-03] MEDS: LIDOCAINE HCL/PF 1% 5 ML VIAL INJ ONE (22:04)
[2018-05-03] MEDS: ACETAMINOPHEN 500 MG TABLET PO ONE (22:04)
[2018-05-03] MEDS: POVIDONE-IODINE 10% 15 ML SOLUTION UD TP ONE (22:05)
[2018-05-03] MEDS: BACITRACIN 0.9 GM PACKET OINTMENT TP ONE (22:29)
[2018-05-03 23:00] VITALS: BP 110/72
[2018-05-03] MEDS ORDERED: DiphenhydrAMINE HCL 25 MG CAPSULE PO ONE (23:15)
== END 2018-05-03 23:01 | disposition home or self-care (01) ==
LOC: EMS 20:46
DX: S71.112A Laceration without foreign body, left thigh, initial encounter (principal); E11.9 Type 2 diabetes mellitus without complications; I10 Essential (primary) hypertension; F10.20 Alcohol dependence, uncomplicated; Z79.899 Other long term (current) drug therapy; Z59.0 Homelessness; Z98.890 Other specified postprocedural states; W25.XXXA Contact with sharp glass, initial encounter; Y93.89 Activity, other specified; Y92.69 Other specified industrial and construction area as the place of occurrence of the external cause; Y99.8 Other external cause status
CPT/HCPCS: 12001; 73552; 82962; 99284; J3490

== ENCOUNTER 2018-05-14 11:12 | Emergency (ER) | payer OTHER ==
[~2018-05-14] VITALS: Ht 162.6 cm; Wt 68.2 kg
[~2018-05-14 11:12] MED LIST changes: -LISI-662 PO; +METF-960 PO; -METF500T6 PO
[2018-05-14 11:29] LABS: GLUCOSE,POINT OF CARE 319 MG/DL (70-110)
[2018-05-14 12:31] VITALS: BP 138/91
== END 2018-05-14 12:33 | disposition home or self-care (01) ==
LOC: EMS 11:13
DX: S71.112D Laceration without foreign body, left thigh, subsequent encounter (principal); E11.9 Type 2 diabetes mellitus without complications; I10 Essential (primary) hypertension; Z79.84 Long term (current) use of oral hypoglycemic drugs; Z59.0 Homelessness; X58.XXXD Exposure to other specified factors, subsequent encounter
CPT/HCPCS: 99281; 99282

== ENCOUNTER 2018-06-26 11:00 | Inpatient (IN) | payer OTHER ==
[~2018-06-26] VITALS: Ht 165.1 cm; Wt 73.6 kg
[2018-06-26 11:18] LABS: GLUCOSE,POINT OF CARE 230 MG/DL (70-110)
[2018-06-26] MEDS ORDERED: MAGNESIUM SULFATE 2 GM, MVI, ADULT NO.1 WITH VIT K 10 ML, THIAMINE HCL 100 MG, FOLIC AC... IV ONE ×10 (11:45→18:30)
[2018-06-26] MEDS ORDERED: LORazepam 2 MG/ML VIAL IVP ONE ×2 (11:45→14:45)
[2018-06-26 12:03] LABS: BASOPHILS % (AUTO) 1.2 % (0.0-2.0); EOSINOPHILS % (AUTO) 0.6 % (1.0-6.0); HEMATOCRIT 40.1 % (41-53); HEMOGLOBIN 14.2 g/dL (13.5-17.5); LYMPHOCYTES # (AUTO) 1.2 K/uL (1.0-4.8); LYMPHOCYTES % (AUTO) 12.7 % (22.0-44.0); MEAN CORPUSCULAR HGB CONC 35.4 G/dL (31.0-37.0); MEAN CORPUSCULAR VOLUME 88 fL (80-100); MONOCYTES # (AUTO) 0.2 K/uL (0.1-1.0); MONOCYTES % (AUTO) 2.3 % (2.0-9.0); NEUTROPHILS # (AUTO) 7.6 K/uL (1.8-7.7); NEUTROPHILS % (AUTO) 83.2 % (40.0-70.0); PLATELET COUNT (AUTO) 477 K/uL (150-450); RED BLOOD CELL COUNT(AUTO) 4.58 MIL/uL (4.50-5.90); RED CELL DISTRIBUTION WIDTH 13.9 % (11.5-14.5)
[2018-06-26 12:21] LABS: ANION GAP 22 mmol/L (8-16); CALCIUM, TOTAL 9.3 mg/dL (8.8-10.5); CARBON DIOXIDE 21 mmol/L (22-29); CHLORIDE 95 mmol/L (98-107); CREATININE 1.15 mg/dL (0.60-1.30); GLOMERULAR FILTR. RATE CALC > 60 mL/min (>60); GLUCOSE,RANDOM 259 mg/dL (70-110); POTASSIUM 4.2 mmol/L (3.5-5.1); SODIUM SERUM 138 mmol/L (136-145); UREA NITROGEN, BLOOD 11 mg/dL (7-18)
[2018-06-26 12:27] LABS: B-TYPE NATRIURETIC PEPTIDE 12 pg/mL (0-100)
[2018-06-26 12:42] LABS: ALANINE AMINOTRANSFERASE 19 U/L (12-78); ALBUMIN 3.7 g/dL (3.4-5.0); ALKALINE PHOSPHATASE 93 U/L (46-116); ASPARTATE AMINOTRANSFERASE 18 U/L (15-37); BILIRUBIN,TOTAL 0.5 mg/dL (0.1-1.0); CREATINE KINASE, TOTAL ONLY 92 U/L (39-308); LIPASE 149 U/L (73-393); TOTAL PROTEIN, SERUM 8.6 g/dL (6.4-8.2)
[2018-06-26] MEDS ORDERED: HydrALAZINE HCL 20 MG/ML VIAL IVP ONE (14:00)
[2018-06-26] MEDS ORDERED: SODIUM CHLORIDE 0.9% 1,000 ML IV ONE (14:45)
[2018-06-26 17:10] LABS: AMPHET/METH SCREEN,URINE NEGATIVE (NEGATIVE); BARBITURATE SCREEN, URINE NEGATIVE (NEGATIVE); BENZODIAZEPINES SCREEN,URINE NEGATIVE (NEGATIVE); CANNABINOID SCREEN,URINE NEGATIVE (NEGATIVE); COCAINE SCREEN,URINE NEGATIVE (NEGATIVE); METHADONE SCREEN, URINE NEGATIVE (NEGATIVE); OPIATE SCREEN,URINE NEGATIVE (NEGATIVE)
[2018-06-26 17:11] LABS: PHENCYCLIDINE SCREEN,URINE NEGATIVE (NEGATIVE)
[2018-06-26] MEDS ORDERED: ACETAMINOPHEN 325 MG TABLET PO PRN ×2 (18:30→22:15)
[2018-06-26] MEDS ORDERED: 0.9% SODIUM CHLORIDE 10 ML SYRINGE IVP PRN (18:30)
[2018-06-26] MEDS ORDERED: LORazepam 2 MG/ML VIAL IVP PRN ×3 (18:30→22:15)
[2018-06-26 20:16] VITALS: BP 159/104
[2018-06-26 20:52] VITALS: BP 152/86
[2018-06-26] MEDS ORDERED: DEXTROSE 50%-WATER 25 GM/50 ML SYRINGE IVP PRN ×2 (21:00→22:15)
[2018-06-26] MEDS ORDERED: HydrALAZINE HCL 20 MG/ML VIAL IVP PRN (21:00)
[2018-06-26] MEDS: INSULIN LISPRO 100 UNITS/ML SQ PRN (21:44)
[2018-06-26] MEDS ORDERED: MORPHINE SULFATE 2 MG/ML SYRINGE IVP PRN (22:15)
[2018-06-26] MEDS ORDERED: INSULIN LISPRO 100 UNITS/ML SQ PRN (22:15)
[2018-06-26] MEDS ORDERED: BISACODYL 10 MG RECTAL RECTAL SUPPOSITORY PR PRN (22:15)
[2018-06-26] MEDS ORDERED: ZOLPIDEM TARTRATE 5 MG TABLET PO PRN (22:15)
[2018-06-26] MEDS ORDERED: MAGNESIUM HYDROXIDE SUSPENSION 30 ML UDCUP PO PRN (22:15)
[2018-06-26] MEDS ORDERED: ONDANSETRON HCL 4 MG/2 ML VIAL IVP PRN (22:15)
[2018-06-26] MEDS ORDERED: HYDROCODONE/ACETAMINOPHEN 5-325 MG TABLET PO PRN (22:15)
[2018-06-26] MEDS ORDERED: CloNIDine HCL 0.1 MG TABLET PO PRN (22:15)
[2018-06-26] MEDS: HEPARIN SODIUM,PORCINE 5,000 UNITS/ML VIAL SQ SCH (23:01)
[2018-06-26 23:50] VITALS: BP 133/76
[2018-06-27 05:08] VITALS: BP 157/85
[2018-06-27] MEDS: INSULIN LISPRO 100 UNITS/ML SQ PRN ×4 (05:50→20:32)
[2018-06-27 06:35] LABS: EOSINOPHILS % (AUTO) 3.7 % (1.0-6.0); HEMATOCRIT 37.8 % (41-53); HEMOGLOBIN 13.5 g/dL (13.5-17.5); LYMPHOCYTES # (AUTO) 1.4 K/uL (1.0-4.8); LYMPHOCYTES % (AUTO) 18.8 % (22.0-44.0); MEAN CORPUSCULAR HGB CONC 35.6 G/dL (31.0-37.0); MEAN CORPUSCULAR VOLUME 87 fL (80-100); MONOCYTES # (AUTO) 0.6 K/uL (0.1-1.0); MONOCYTES % (AUTO) 7.2 % (2.0-9.0); NEUTROPHILS # (AUTO) 5.4 K/uL (1.8-7.7); NEUTROPHILS % (AUTO) 69.3 % (40.0-70.0); PLATELET COUNT (AUTO) 408 K/uL (150-450); RED BLOOD CELL COUNT(AUTO) 4.35 MIL/uL (4.50-5.90); RED CELL DISTRIBUTION WIDTH 13.4 % (11.5-14.5)
[2018-06-27 07:04] LABS: ALANINE AMINOTRANSFERASE 17 U/L (12-78); ALBUMIN 3.2 g/dL (3.4-5.0); ALKALINE PHOSPHATASE 77 U/L (46-116); ANION GAP 9 mmol/L (8-16); ASPARTATE AMINOTRANSFERASE 19 U/L (15-37); BILIRUBIN,TOTAL 0.9 mg/dL (0.1-1.0); CALCIUM, TOTAL 8.1 mg/dL (8.8-10.5); CARBON DIOXIDE 26 mmol/L (22-29); CHLORIDE 100 mmol/L (98-107); CREATININE 1.05 mg/dL (0.60-1.30); GLOMERULAR FILTR. RATE CALC > 60 mL/min (>60); GLUCOSE,RANDOM 197 mg/dL (70-110); POTASSIUM 3.3 mmol/L (3.5-5.1); SODIUM SERUM 135 mmol/L (136-145); TOTAL PROTEIN, SERUM 7.4 g/dL (6.4-8.2); UREA NITROGEN, BLOOD 12 mg/dL (7-18)
[2018-06-27 07:51] VITALS: BP 145/88
[2018-06-27] MEDS: HEPARIN SODIUM,PORCINE 5,000 UNITS/ML VIAL SQ SCH ×3 (08:21→23:25)
[2018-06-27] MEDS: DOCUSATE SODIUM 100 MG CAPSULE PO SCH ×2 (08:22→20:26)
[2018-06-27] MEDS: PANTOPRAZOLE SODIUM 40 MG DR TABLET PO SCH (08:22)
[2018-06-27] MEDS: ChlordiazePOXIDE HCL 25 MG CAPSULE PO SCH ×2 (08:22→12:23)
[2018-06-27] MEDS ORDERED: POTASSIUM CHLORIDE 20 MEQ ER TABLET PO ONE (11:45)
[2018-06-27 11:57] VITALS: BP 152/85
[2018-06-27 12:30] VITALS: BP 148/79
[2018-06-27 13:05] LABS: GLUCOMETER DEV NAME(LOC) 5S 2Q; GLUCOSE,POINT OF CARE 249 MG/DL (70-110)
[2018-06-27] MEDS ORDERED: ChlordiazePOXIDE HCL 10 MG CAPSULE PO PRN (13:30)
[2018-06-27] MEDS: LOSARTAN POTASSIUM 50 MG TABLET PO SCH (14:32)
[2018-06-27] MEDS: HYDROCHLOROTHIAZIDE 25 MG TABLET PO SCH (14:33)
[2018-06-27] MEDS: INSULIN GLARGINE,HUM.REC.ANLOG 100 UNITS/ML SQ SCH ×2 (14:38→20:31)
[2018-06-27 15:39] VITALS: BP 142/86
[2018-06-27 19:49] VITALS: BP 117/74
[2018-06-27 21:34] LABS: GLUCOMETER DEV NAME(LOC) 5S 2Q; GLUCOSE,POINT OF CARE 222 MG/DL (70-110)
[2018-06-28] VITALS (7 sets, daily range): BP systolic 109–137; BP diastolic 64–76
[2018-06-28] MEDS: INSULIN LISPRO 100 UNITS/ML SQ PRN ×4 (06:22→21:04)
[2018-06-28 07:19] LABS: ANION GAP 8 mmol/L (8-16); CALCIUM, TOTAL 9.2 mg/dL (8.8-10.5); CARBON DIOXIDE 26 mmol/L (22-29); CHLORIDE 102 mmol/L (98-107); CREATININE 1.05 mg/dL (0.60-1.30); GLOMERULAR FILTR. RATE CALC > 60 mL/min (>60); GLUCOSE,RANDOM 181 mg/dL (70-110); POTASSIUM 3.4 mmol/L (3.5-5.1); SODIUM SERUM 136 mmol/L (136-145); UREA NITROGEN, BLOOD 16 mg/dL (7-18)
[2018-06-28] MEDS: HEPARIN SODIUM,PORCINE 5,000 UNITS/ML VIAL SQ SCH ×3 (07:58→23:32)
[2018-06-28] MEDS: HYDROCHLOROTHIAZIDE 25 MG TABLET PO SCH (07:58)
[2018-06-28] MEDS: LOSARTAN POTASSIUM 50 MG TABLET PO SCH (07:58)
[2018-06-28] MEDS: PANTOPRAZOLE SODIUM 40 MG DR TABLET PO SCH (07:59)
[2018-06-28] MEDS: DOCUSATE SODIUM 100 MG CAPSULE PO SCH ×2 (07:59→21:01)
[2018-06-28] MEDS: INSULIN GLARGINE,HUM.REC.ANLOG 100 UNITS/ML SQ SCH ×2 (08:03→21:03)
[2018-06-28 14:19] LABS: GLUCOMETER DEV NAME(LOC) 5N 2S; GLUCOSE,POINT OF CARE 226 MG/DL (70-110)
[2018-06-28 14:20] LABS: GLUCOMETER DEV NAME(LOC) 5N 2S; GLUCOSE,POINT OF CARE 230 MG/DL (70-110)
[2018-06-28 14:20] LABS: GLUCOMETER DEV NAME(LOC) 5N 2S; GLUCOSE,POINT OF CARE 162 MG/DL (70-110)
[2018-06-28 14:20] LABS: GLUCOMETER DEV NAME(LOC) 5N 2S; GLUCOSE,POINT OF CARE 172 MG/DL (70-110)
[2018-06-29 04:05] LABS: GLUCOMETER DEV NAME(LOC) 5S 1N; GLUCOSE,POINT OF CARE 226 MG/DL (70-110)
[2018-06-29 04:44] VITALS: BP 118/64
[2018-06-29] MEDS: INSULIN LISPRO 100 UNITS/ML SQ PRN ×2 (06:20→11:52)
[2018-06-29 06:36] LABS: GLUCOMETER DEV NAME(LOC) 5S 2R; GLUCOSE,POINT OF CARE 201 MG/DL (70-110)
[2018-06-29 07:47] VITALS: BP 103/74
[2018-06-29] MEDS: INSULIN GLARGINE,HUM.REC.ANLOG 100 UNITS/ML SQ SCH (08:04)
[2018-06-29] MEDS: PANTOPRAZOLE SODIUM 40 MG DR TABLET PO SCH (08:04)
[2018-06-29] MEDS: HEPARIN SODIUM,PORCINE 5,000 UNITS/ML VIAL SQ SCH (08:04)
[2018-06-29] MEDS: HYDROCHLOROTHIAZIDE 25 MG TABLET PO SCH (08:04)
[2018-06-29] MEDS: LOSARTAN POTASSIUM 50 MG TABLET PO SCH (08:05)
[2018-06-29] MEDS: DOCUSATE SODIUM 100 MG CAPSULE PO SCH (08:05)
[2018-06-29 11:37] VITALS: BP 140/83
[2018-06-29] MEDS ORDERED: LOSA50TA25 PO (12:28)
[2018-06-29] MEDS ORDERED: METF-960 PO (12:28)
[2018-06-30 03:56] LABS: GLUCOMETER DEV NAME(LOC) 5N 1P; GLUCOSE,POINT OF CARE 170 MG/DL (70-110)
[2018-06-30 03:56] LABS: GLUCOMETER DEV NAME(LOC) 5S 1N; GLUCOSE,POINT OF CARE 145 MG/DL (70-110)
[2018-06-30 03:56] LABS: GLUCOMETER DEV NAME(LOC) 5S 1N; GLUCOSE,POINT OF CARE 259 MG/DL (70-110)
[2018-07-06 20:58] LABS: GLUCOMETER DEV NAME(LOC) 5N 2S; GLUCOSE,POINT OF CARE 239 MG/DL (70-110)
== END 2018-06-29 15:15 | disposition home or self-care (01) | DRG 425 ==
LOC: EMS 11:00 → 5S 18:22
PROVIDERS: ADMIT Internal Medicine; ATTEND Internal Medicine
DX: E87.6 Hypokalemia (principal); E11.65 Type 2 diabetes mellitus with hyperglycemia; R00.0 Tachycardia, unspecified; F10.239 Alcohol dependence with withdrawal, unspecified; I10 Essential (primary) hypertension; J98.11 Atelectasis; Z23 Encounter for immunization
CPT/HCPCS: 83036; 90686; 93005; 93306; 99285; G0480; J0360; J1644; J1815; J2060; J3411; J3475; J3490; J7030

== ENCOUNTER 2018-07-29 22:54 | Emergency (ER) | payer OTHER ==
[~2018-07-29] VITALS: Ht 165.1 cm; Wt 68.2 kg
[~2018-07-29 22:54] MED LIST changes: +LOSA50TA25 PO
[2018-07-29 23:03] VITALS: BP 142/92
[2018-07-29 23:12] LABS: GLUCOSE,POINT OF CARE 258 MG/DL (70-110)
== END 2018-07-30 01:44 | disposition left against medical advice (07) ==
LOC: EMS 22:55
DX: F10.129 Alcohol abuse with intoxication, unspecified (principal); Y90.9 Presence of alcohol in blood, level not specified; Z53.21 Procedure and treatment not carried out due to patient leaving prior to being seen by health care provider

== ENCOUNTER 2019-02-07 16:37 | Emergency (ER) | payer OTHER ==
[~2019-02-07] VITALS: Ht 162.6 cm; Wt 68.2 kg
[~2019-02-07 16:37] MED LIST changes: -LOSA50TA25 PO; +LOSA50TA64 PO
[2019-02-07 17:39] LABS: GLUCOSE,POINT OF CARE 487 MG/DL (70-110)
[2019-02-07] MEDS ORDERED: HYDROCODONE/ACETAMINOPHEN 5-325 MG TABLET PO ONE (18:45)
[2019-02-07 19:22] LABS: BASOPHILS % (AUTO) 1.1 % (0.0-2.0); EOSINOPHILS % (AUTO) 4.7 % (1.0-6.0); HEMATOCRIT 40.4 % (41-53); LYMPHOCYTES # (AUTO) 1.8 K/uL (1.0-4.8); LYMPHOCYTES % (AUTO) 30.2 % (22.0-44.0); MEAN CORPUSCULAR HEMOGLOBIN 30.6 pg (26.0-34.0); MEAN CORPUSCULAR HGB CONC 34.8 G/dL (31.0-37.0); MEAN CORPUSCULAR VOLUME 88 fL (80-100); MONOCYTES # (AUTO) 0.5 K/uL (0.1-1.0); MONOCYTES % (AUTO) 8.1 % (2.0-9.0); NEUTROPHILS # (AUTO) 3.2 K/uL (1.8-7.7); NEUTROPHILS % (AUTO) 55.9 % (40.0-70.0); PLATELET COUNT (AUTO) 326 K/uL (150-450); RED BLOOD CELL COUNT(AUTO) 4.58 MIL/uL (4.50-5.90); RED CELL DISTRIBUTION WIDTH 13.6 % (11.5-14.5)
[2019-02-07] MEDS ORDERED: HEPARIN SODIUM 25000 UNITS/D5W 250 ML IV PRN (19:27)
[2019-02-07] MEDS ORDERED: HEPARIN SODIUM,PORCINE 5,000 UNITS/ML VIAL IVP PRN ×2 (19:30)
[2019-02-07] MEDS ORDERED: HEPARIN SODIUM,PORCINE 5,000 UNITS/ML VIAL IVP ONE ×2 (19:30→19:45)
[2019-02-07 19:32] LABS: INR 0.9 (0.9-1.1); PROTHROMBIN TIME 9.6 SEC (9.4-11.6)
[2019-02-07 19:57] LABS: ALBUMIN 3.6 g/dL (3.4-5.0); BILIRUBIN,TOTAL 0.3 mg/dL (0.1-1.0); CALCIUM, TOTAL 9.4 mg/dL (8.8-10.5); CREATININE 1.47 mg/dL (0.60-1.30); POTASSIUM 4.2 mmol/L (3.5-5.1); TOTAL PROTEIN, SERUM 7.7 g/dL (6.4-8.2)
[2019-02-07] MEDS ORDERED: SODIUM CHLORIDE 0.9% 1,000 ML IV ONE (20:15)
[2019-02-08 01:19] LABS: GLUCOSE,POINT OF CARE 270 MG/DL (70-110)
[2019-02-08 01:45] VITALS: BP 111/76
== END 2019-02-08 00:55 | disposition short-term general hospital (02) ==
LOC: EMS 16:37
DX: I74.3 Embolism and thrombosis of arteries of the lower extremities (principal); E11.9 Type 2 diabetes mellitus without complications; I10 Essential (primary) hypertension; Z59.0 Homelessness; Z79.84 Long term (current) use of oral hypoglycemic drugs
CPT/HCPCS: 36415; 80053; 82550; 82962; 85025; 85610; 85730; 93926; 93971; 96365; 96366; 96375; 99291; J1644 ×2; J7030

== ENCOUNTER 2019-10-20 23:49 | Emergency (ER) | payer OTHER ==
[~2019-10-20] VITALS: Ht 162.6 cm; Wt 63.6 kg
[~2019-10-20 23:49] MED LIST changes: +FOLI1 PO; +LIB25 PO; +LOSA-88 PO; -LOSA50TA64 PO; +METO25 PO; +MULT-1203 PO; +THIA100T67 PO
[2019-10-21 00:13] LABS: GLUCOSE,POINT OF CARE 313 MG/DL (70-110)
[2019-10-21] MEDS ORDERED: KETOROLAC TROMETHAMINE 30 MG/ML VIAL IVP ONE (02:00)
[2019-10-21] MEDS ORDERED: SODIUM CHLORIDE 0.9% 1,000 ML IV ONE ×2 (02:00→03:15)
[2019-10-21 02:24] LABS: BASOPHILS % (AUTO) 0.5 % (0.0-2.0); EOSINOPHILS % (AUTO) 1.8 % (1.0-6.0); HEMATOCRIT 35.2 % (41-53); HEMOGLOBIN 12.3 g/dL (13.5-17.5); LYMPHOCYTES % (AUTO) 15.5 % (22.0-44.0); MEAN CORPUSCULAR HEMOGLOBIN 30.8 pg (26.0-34.0); MEAN CORPUSCULAR VOLUME 88 fL (80-100); MONOCYTES # (AUTO) 1.2 K/uL (0.1-1.0); MONOCYTES % (AUTO) 9.2 % (2.0-9.0); NEUTROPHILS # (AUTO) 9.6 K/uL (1.8-7.7); PLATELET COUNT (AUTO) 444 K/uL (150-450); RED BLOOD CELL COUNT(AUTO) 3.99 MIL/uL (4.50-5.90); RED CELL DISTRIBUTION WIDTH 12.6 % (11.5-14.5)
[2019-10-21 02:32] LABS: ANION GAP 11 mmol/L (8-16); CALCIUM, TOTAL 9.3 mg/dL (8.8-10.5); CARBON DIOXIDE 27 mmol/L (22-29); CHLORIDE 99 mmol/L (98-107); CREATININE 1.26 mg/dL (0.60-1.30); GLOMERULAR FILTR. RATE CALC > 60 mL/min (>60); GLUCOSE,RANDOM 309 mg/dL (70-110); POTASSIUM 3.7 mmol/L (3.5-5.1); SODIUM SERUM 137 mmol/L (136-145); UREA NITROGEN, BLOOD 15 mg/dL (7-18)
[2019-10-21 02:41] LABS: ALANINE AMINOTRANSFERASE 14 U/L (12-78); ALBUMIN 2.9 g/dL (3.4-5.0); ALKALINE PHOSPHATASE 98 U/L (46-116); ASPARTATE AMINOTRANSFERASE 9 U/L (15-37); BILIRUBIN,TOTAL 0.4 mg/dL (0.1-1.0); CREATINE KINASE, TOTAL ONLY 68 U/L (39-308)
[2019-10-21] MEDS ORDERED: BENZONATATE 100 MG CAPSULE PO ONE (02:45)
[2019-10-21 02:46] LABS: B-TYPE NATRIURETIC PEPTIDE 123 pg/mL (0-100)
[2019-10-21] MEDS ORDERED: ACETAMINOPHEN 500 MG TABLET PO ONE (03:15)
[2019-10-21 04:02] VITALS: BP 138/80
== END 2019-10-21 04:30 | disposition home or self-care (01) ==
LOC: EMS 23:49
DX: J06.9 Acute upper respiratory infection, unspecified (principal); B97.89 Other viral agents as the cause of diseases classified elsewhere; E11.9 Type 2 diabetes mellitus without complications; I10 Essential (primary) hypertension; F10.20 Alcohol dependence, uncomplicated; Z59.0 Homelessness
CPT/HCPCS: 36415; 71046; 80053; 82550; 82962; 83880; 84484; 85025; 93005; 96374; 99285; J1885; J7030

== ENCOUNTER 2019-12-24 14:18 | Emergency (ER) | payer OTHER ==
[~2019-12-24] VITALS: Ht 162.6 cm; Wt 70.5 kg
[2019-12-24] MEDS ORDERED: SULFAMETHOX/TRIMETH DS 800-160 MG/TABLET PO ONE (15:30)
[2019-12-24] MEDS ORDERED: MUPIROCIN CALCIUM 2% 22 GM OINTMENT NASAL ONE (15:30)
[2019-12-24] MEDS ORDERED: KETOROLAC TROMETHAMINE 60 MG/2 ML VIAL IM ONE (15:30)
[2019-12-24 16:32] VITALS: BP 119/88
== END 2019-12-24 16:45 | disposition home or self-care (01) ==
LOC: EMS 14:19
DX: J34.0 Abscess, furuncle and carbuncle of nose (principal); E11.9 Type 2 diabetes mellitus without complications; I10 Essential (primary) hypertension; Z59.0 Homelessness
CPT/HCPCS: 96372; 99283; J1885

== ENCOUNTER 2019-12-25 13:30 | Emergency (ER) | payer OTHER ==
[~2019-12-25] VITALS: Ht 162.6 cm; Wt 68.2 kg
[2019-12-25 13:46] VITALS: BP 171/98
[2019-12-25 14:06] LABS: GLUCOSE,POINT OF CARE 247 MG/DL (70-110)
[2019-12-25] MEDS ORDERED: IBUPROFEN 400 MG TABLET PO ONE (15:00)
[2019-12-25] MEDS ORDERED: ACETAMINOPHEN 500 MG TABLET PO ONE (15:00)
[2019-12-25] MEDS ORDERED: CEPHALEXIN MONOHYDRATE 500 MG CAPSULE PO ONE (15:00)
[2019-12-25] MEDS ORDERED: SULFAMETHOX/TRIMETH DS 800-160 MG/TABLET PO ONE (15:00)
== END 2019-12-25 15:21 | disposition home or self-care (01) ==
LOC: EMS 13:31
DX: J34.0 Abscess, furuncle and carbuncle of nose (principal); E11.9 Type 2 diabetes mellitus without complications; I10 Essential (primary) hypertension; Z59.0 Homelessness

== ENCOUNTER 2020-03-27 09:12 | Emergency (ER) | payer OTHER ==
[~2020-03-27] VITALS: Ht 165.1 cm; Wt 72.7 kg
[2020-03-27] MEDS ORDERED: CARV12 PO (09:27)
[2020-03-27] MEDS ORDERED: METF-960 PO (09:27)
[2020-03-27] MEDS ORDERED: FERR-89 PO (09:27)
[2020-03-27] MEDS ORDERED: ATOR40TA28 PO (09:27)
[2020-03-27] MEDS ORDERED: DOCU-275 PO (09:27)
[2020-03-27] MEDS ORDERED: LISI-661 PO (09:27)
[2020-03-27] MEDS ORDERED: GLIP5 PO (09:27)
[2020-03-27] MEDS ORDERED: ASPI-728 PO (09:27)
[2020-03-27] MEDS ORDERED: ASCO500 PO (09:27)
[2020-03-27] MEDS ORDERED: MELA5TAB3 PO (09:27)
[2020-03-27] MEDS ORDERED: MORPHINE SULFATE 4 MG/ML SYRINGE IVP ONE (10:45)
[2020-03-27 11:19] LABS: BASOPHILS % (AUTO) 0.9 % (0.0-2.0); EOSINOPHILS % (AUTO) 4.6 % (1.0-6.0); HEMATOCRIT 29.8 % (41-53); HEMOGLOBIN 10.3 g/dL (13.5-17.5); LYMPHOCYTES # (AUTO) 1.6 K/uL (1.0-4.8); LYMPHOCYTES % (AUTO) 24.2 % (22.0-44.0); MEAN CORPUSCULAR HEMOGLOBIN 30.1 pg (26.0-34.0); MEAN CORPUSCULAR HGB CONC 34.7 G/dL (31.0-37.0); MEAN CORPUSCULAR VOLUME 87 fL (80-100); MONOCYTES # (AUTO) 0.4 K/uL (0.1-1.0); MONOCYTES % (AUTO) 6.6 % (2.0-9.0); NEUTROPHILS # (AUTO) 4.1 K/uL (1.8-7.7); NEUTROPHILS % (AUTO) 63.7 % (40.0-70.0); PLATELET COUNT (AUTO) 322 K/uL (150-450); RED BLOOD CELL COUNT(AUTO) 3.43 MIL/uL (4.50-5.90); RED CELL DISTRIBUTION WIDTH 13.6 % (11.5-14.5)
[2020-03-27 11:29] LABS: ANION GAP 4 mmol/L (8-16); CARBON DIOXIDE 28 mmol/L (22-29); CHLORIDE 106 mmol/L (98-107); GLOMERULAR FILTR. RATE CALC > 60 mL/min (>60); GLUCOSE,RANDOM 204 mg/dL (70-110); SODIUM SERUM 138 mmol/L (136-145); UREA NITROGEN, BLOOD 17 mg/dL (7-18)
[2020-03-27 11:35] LABS: ALANINE AMINOTRANSFERASE 29 U/L (12-78); ALBUMIN 3.4 g/dL (3.4-5.0); ALKALINE PHOSPHATASE 90 U/L (46-116); ASPARTATE AMINOTRANSFERASE 14 U/L (15-37); BILIRUBIN,TOTAL 0.4 mg/dL (0.1-1.0); LIPASE 144 U/L (73-393); TOTAL PROTEIN, SERUM 7.9 g/dL (6.4-8.2)
[2020-03-27] MEDS ORDERED: SODIUM CHLORIDE 0.9% 1,000 ML IV ONE (12:00)
[2020-03-27 12:20] LABS: APPEARANCE,URINE CLEAR (CLEAR); BILIRUBIN,URINE NEGATIVE (NEGATIVE); GLUCOSE, URINE (UA) 100 mg/dL (NEGATIVE); KETONES,URINE NEGATIVE (NEGATIVE); LEUKOCYTE ESTERASE ,URINE NEGATIVE (NEGATIVE); NITRATE,URINE NEGATIVE (NEGATIVE); OCCULT BLOOD,URINE NEGATIVE (NEGATIVE); PROTEIN,URINE SEE CONFIRM (NEGATIVE); UROBILINOGEN,URINE 0.2 mg/dL (<=1.0)
[2020-03-27 12:29] LABS: BACTERIA,URINE None Seen /HPF (None Seen); RBC,URINE None Seen /HPF (0-2); SULFOSALICYLIC ACID,URINE 1+ (Negative); WBC,URINE None Seen /HPF (0-5)
[2020-03-27 14:18] VITALS: BP 169/90
== END 2020-03-27 14:20 | disposition home or self-care (01) ==
LOC: EMS 09:13
DX: K52.9 Noninfective gastroenteritis and colitis, unspecified (principal); E11.9 Type 2 diabetes mellitus without complications; E78.00 Pure hypercholesterolemia, unspecified; I10 Essential (primary) hypertension; I25.10 Atherosclerotic heart disease of native coronary artery without angina pectoris; Z59.0 Homelessness
CPT/HCPCS: 36415; 71045; 74176; 80053; 81001; 82962; 83690; 84484; 85025; 93005; 96361; 96374; 99285; J2270; J7030

== ENCOUNTER 2020-06-01 16:35 | Emergency (ER) | payer OTHER ==
[~2020-06-01] VITALS: Ht 165.1 cm; Wt 70.9 kg
[~2020-06-01 16:35] MED LIST changes: +ASCO500 PO; +ASPI-728 PO; +ATOR40TA28 PO; +CARV12 PO; -FOLI1 PO; +GLIP5 PO; -LIB25 PO; +LISI-661 PO; -LOSA-88 PO; -METO25 PO; -MULT-1203 PO; -THIA100T67 PO
[2020-06-01 19:29] VITALS: BP 139/89
== END 2020-06-01 20:26 | disposition home or self-care (01) ==
LOC: EMS 16:37
DX: K05.6 Periodontal disease, unspecified (principal); K06.9 Disorder of gingiva and edentulous alveolar ridge, unspecified; I25.10 Atherosclerotic heart disease of native coronary artery without angina pectoris; E11.9 Type 2 diabetes mellitus without complications; E78.00 Pure hypercholesterolemia, unspecified; I10 Essential (primary) hypertension; Z79.84 Long term (current) use of oral hypoglycemic drugs; Z79.899 Other long term (current) drug therapy; Z79.82 Long term (current) use of aspirin
CPT/HCPCS: 99283; Z7502

== ENCOUNTER 2024-03-02 17:36 | Inpatient (IN) | payer OTHER ==
[~2024-03-02] VITALS: Ht 170.2 cm; Wt 68.0 kg
[~2024-03-02 17:36] MED LIST changes: +ACET-784 PO; +AMLO-258 PO; -ASCO500 PO; -ASPI-728 PO; +ATOR-2 PO; -ATOR40TA28 PO; +BISA-72 PO; -CARV12 PO; +CHLO25TA3 PO; +CHOL200059 PO; +CLOP75TA60 PO; +EPOE10006 SQ; +FOLI1TAB85 PO; +FURO40 PO; -GLIP5 PO; +HYDR10TA31 PO; +HYDR50CA6 PO; +INSLAN SQ; +INSU100V SQ; -LISI-661 PO; +MAGN-169 PO; -METF-960 PO; +METO50 PO; +RANO500T6 PO; +SEVE800T38 PO; +SILD20TA14 PO; +TRAZ-252 PO
[2024-03-02 18:06] LABS: COVID AG,FIA SOURCE NASAL SWAB
[2024-03-02 18:11] LABS: BASOPHILS % (AUTO) 1.2 % (0.0-2.0); EOSINOPHILS % (AUTO) 11.7 % (1.0-6.0); HEMATOCRIT 34.3 % (41-53); HEMOGLOBIN 11.3 g/dL (13.5-17.5); LYMPHOCYTES # (AUTO) 1.2 K/uL (1.0-4.8); LYMPHOCYTES % (AUTO) 14.8 % (22.0-44.0); MEAN CORPUSCULAR HEMOGLOBIN 29.5 pg (26.0-34.0); MEAN CORPUSCULAR HGB CONC 33.1 G/dL (31.0-37.0); MEAN CORPUSCULAR VOLUME 89 fL (80-100); MONOCYTES # (AUTO) 0.4 K/uL (0.1-1.0); MONOCYTES % (AUTO) 5.6 % (2.0-9.0); NEUTROPHILS # (AUTO) 5.4 K/uL (1.8-7.7); NEUTROPHILS % (AUTO) 66.7 % (40.0-70.0); PLATELET COUNT (AUTO) 296 K/uL (150-450); RED BLOOD CELL COUNT(AUTO) 3.85 MIL/uL (4.50-5.90); RED CELL DISTRIBUTION WIDTH 18.5 % (11.5-14.5); WHITE BLOOD COUNT (AUTO) 8.1 K/uL (4.5-11.0)
[2024-03-02 18:18] LABS: CREATININE 8.72 mg/dL (0.60-1.30); POTASSIUM 4.6 mmol/L (3.5-5.1)
[2024-03-02 18:26] LABS: TROPONIN I-HIGH SENSITIVITY 24 ng/L (<76)
[2024-03-02 18:32] LABS: INFLUENZA TYPE A NEGATIVE FOR TYPE A (NEGATIVE); INFLUENZA TYPE B NEGATIVE FOR TYPE B (NEGATIVE); SARS-COV2 (COVID) ANTIGEN,FIA Negative (Negative)
[2024-03-02 18:43] LABS: BILIRUBIN,TOTAL 0.4 mg/dL (0.1-1.0); TOTAL PROTEIN, SERUM 7.3 g/dL (6.4-8.2)
[2024-03-02] MEDS ORDERED: ONDANSETRON HCL 4 MG/2 ML VIAL IVP PRN (20:15)
[2024-03-02] MEDS ORDERED: HydrALAZINE HCL 20 MG/ML VIAL IVP PRN (20:15)
[2024-03-02] MEDS ORDERED: ACETAMINOPHEN 325 MG TABLET PO PRN (20:15)
[2024-03-02] MEDS ORDERED: BISACODYL 5 MG EC TABLET PO PRN (20:30)
[2024-03-02] MEDS ORDERED: MAGNESIUM HYDROXIDE SUSPENSION 30 ML UDCUP PO PRN (20:30)
[2024-03-02] MEDS: ATORVASTATIN CALCIUM 40 MG TABLET PO SCH (20:47)
[2024-03-02] MEDS: METOPROLOL TARTRATE 50 MG TABLET PO SCH (20:48)
[2024-03-02] MEDS: TraZODone HCL 50 MG TABLET PO SCH (20:48)
[2024-03-02] MEDS: DOCUSATE SODIUM 100 MG CAPSULE PO SCH (20:48)
[2024-03-02] MEDS: INSULIN GLARGINE,HUM.REC.ANLOG 100 UNITS/ML SQ SCH (20:49)
[2024-03-02] MEDS: BUMETANIDE 0.25 MG/ML 4 ML VIAL IVP ONE (20:49)
[2024-03-02] MEDS: NITROGLYCERIN 2% (1 GM=INCH) OINTMENT PACKET TP SCH (20:50)
[2024-03-02] MEDS: RANOLAZINE 500 MG ER TABLET PO SCH (21:38)
[2024-03-02] MEDS: HEPARIN SODIUM,PORCINE 5,000 UNITS/ML VIAL SQ SCH (23:12)
[2024-03-02 23:19] VITALS: BP 132/73; PULSE 67; RESP 19; TEMP 98.2
[2024-03-02] MEDS: HydrOXYzine PAMOATE 50 MG CAPSULE PO PRN (23:23)
[2024-03-02 23:34] LABS: TROPONIN I-HIGH SENSITIVITY 34 ng/L (<76)
[2024-03-03] VITALS (12 sets, daily range): BP systolic 98–143; BP diastolic 48–85; PULSE 61–88; RESP 16–19; TEMP 97.7–98.2
[2024-03-03 06:36] LABS: GLUCOMETER DEV NAME(LOC) 5S.1B; GLUCOSE,POINT OF CARE 104 MG/DL (70-110)
[2024-03-03 07:04] LABS: BASOPHILS % (AUTO) 1.2 % (0.0-2.0); EOSINOPHILS % (AUTO) 10.3 % (1.0-6.0); HEMATOCRIT 28.4 % (41-53); HEMOGLOBIN 9.6 g/dL (13.5-17.5); LYMPHOCYTES # (AUTO) 1.5 K/uL (1.0-4.8); LYMPHOCYTES % (AUTO) 18.1 % (22.0-44.0); MEAN CORPUSCULAR HEMOGLOBIN 30.1 pg (26.0-34.0); MEAN CORPUSCULAR HGB CONC 33.9 G/dL (31.0-37.0); MEAN CORPUSCULAR VOLUME 89 fL (80-100); MONOCYTES # (AUTO) 0.6 K/uL (0.1-1.0); MONOCYTES % (AUTO) 6.9 % (2.0-9.0); NEUTROPHILS # (AUTO) 5.4 K/uL (1.8-7.7); NEUTROPHILS % (AUTO) 63.5 % (40.0-70.0); PLATELET COUNT (AUTO) 275 K/uL (150-450); WHITE BLOOD COUNT (AUTO) 8.5 K/uL (4.5-11.0)
[2024-03-03 07:38] LABS: CALCIUM, TOTAL 7.4 mg/dL (8.8-10.5); CREATININE 9.33 mg/dL (0.60-1.30); MAGNESIUM 2.3 mg/dL (1.80-2.40); POTASSIUM 5.2 mmol/L (3.5-5.1)
[2024-03-03] MEDS ORDERED: NITROGLYCERIN 0.4 MG SUBLINGUAL TABLET #25 SL PRN (07:45)
[2024-03-03] MEDS: CHLORTHALIDONE 25 MG TABLET PO SCH (09:00)
[2024-03-03] MEDS: FOLIC ACID/VIT B COMPLEX AND C TABLET PO SCH (09:58)
[2024-03-03] MEDS: AmLODIPine BESYLATE 10 MG TABLET PO SCH (09:59)
[2024-03-03] MEDS: CHOLECALCIFEROL (VIT D3) 2,000 UNITS [50 MCG] TABLET PO SCH (09:59)
[2024-03-03] MEDS: FUROSEMIDE 40 MG TABLET PO SCH (09:59)
[2024-03-03] MEDS: SEVELAMER CARBONATE 800 MG TABLET PO SCH (09:59)
[2024-03-03] MEDS: CLOPIDOGREL BISULFATE 75 MG TABLET PO SCH (10:00)
[2024-03-03] MEDS: ASPIRIN 81 MG DR TABLET PO SCH (10:00)
[2024-03-03] MEDS ORDERED: ASPI-1444 PO (18:25)
[2024-03-03] MEDS ORDERED: HEPARIN SODIUM,PORCINE 1,000 UNITS/ML VIAL IVP ONE (19:19)
[2024-03-04] MEDS ORDERED: EPOETIN ALFA 10,000 UNITS/ML VIAL SQ SCH (09:00)
== END 2024-03-03 19:20 | disposition home or self-care (01) | DRG 194 ==
LOC: EMS 17:39 → EDH 20:42 → 5S 21:10 → EDH 21:10 → 5N 23:07
PROVIDERS: ADMIT Internal Medicine; ATTEND Internal Medicine
PROC: 5A1D70Z Performance of Urinary Filtration, Intermittent, Less than 6 Hours Per Day (ICD-10-PCS; principal; 2024-03-03)
DX: I13.2 Hypertensive heart and chronic kidney disease with heart failure and with stage 5 chronic kidney disease, or end stage renal disease (principal); N18.6 End stage renal disease; E11.22 Type 2 diabetes mellitus with diabetic chronic kidney disease; D63.1 Anemia in chronic kidney disease; I50.33 Acute on chronic diastolic (congestive) heart failure; I25.10 Atherosclerotic heart disease of native coronary artery without angina pectoris; E83.39 Other disorders of phosphorus metabolism; K59.00 Constipation, unspecified; F32.A Depression, unspecified; F41.9 Anxiety disorder, unspecified; Z20.822 Contact with and (suspected) exposure to COVID-19; I16.1 Hypertensive emergency; I34.0 Nonrheumatic mitral (valve) insufficiency; Z95.1 Presence of aortocoronary bypass graft; Z59.00 Homelessness unspecified; Z79.82 Long term (current) use of aspirin; Z79.02 Long term (current) use of antithrombotics/antiplatelets; Z99.2 Dependence on renal dialysis; Z87.891 Personal history of nicotine dependence
CPT/HCPCS: 71045; 80048; 80053; 82550; 82962; 83735; 83880; 84484; 85025; 87081; 87804; 90935; 93005; 93306; 99285; J0885; J1644; J1815; J3490; 36415-L1; 36415-TC

== ENCOUNTER 2024-03-10 09:54 | Inpatient (IN) | payer OTHER ==
[~2024-03-10] VITALS: Ht 162.6 cm; Wt 71.0 kg
[2024-03-10] VITALS (12 sets, daily range): BP systolic 133–198; BP diastolic 70–113; PULSE 81–98; RESP 19–20; TEMP 97.9–98.2
[~2024-03-10 09:54] MED LIST changes: +ASPI-1444 PO
[2024-03-10] MEDS ORDERED: BUSP10TA23 PO (10:12)
[2024-03-10] MEDS ORDERED: BUSP5TAB20 PO (10:12)
[2024-03-10 10:21] LABS: GLUCOMETER DEV NAME(LOC) ERT.5; GLUCOSE,POINT OF CARE 124 MG/DL (70-110)
[2024-03-10 10:29] LABS: BASOPHILS % (AUTO) 1.1 % (0.0-2.0); EOSINOPHILS % (AUTO) 3.9 % (1.0-6.0); HEMATOCRIT 30.3 % (41-53); HEMOGLOBIN 10.2 g/dL (13.5-17.5); LYMPHOCYTES # (AUTO) 0.8 K/uL (1.0-4.8); MEAN CORPUSCULAR HEMOGLOBIN 30.2 pg (26.0-34.0); MEAN CORPUSCULAR HGB CONC 33.5 G/dL (31.0-37.0); MEAN CORPUSCULAR VOLUME 90 fL (80-100); MONOCYTES # (AUTO) 0.4 K/uL (0.1-1.0); MONOCYTES % (AUTO) 3.6 % (2.0-9.0); NEUTROPHILS # (AUTO) 8.8 K/uL (1.8-7.7); NEUTROPHILS % (AUTO) 83.4 % (40.0-70.0); PLATELET COUNT (AUTO) 257 K/uL (150-450); RED BLOOD CELL COUNT(AUTO) 3.36 MIL/uL (4.50-5.90); RED CELL DISTRIBUTION WIDTH 17.6 % (11.5-14.5); WHITE BLOOD COUNT (AUTO) 10.5 K/uL (4.5-11.0)
[2024-03-10 10:43] LABS: CALCIUM, TOTAL 7.8 mg/dL (8.8-10.5); CREATININE 11.98 mg/dL (0.60-1.30); POTASSIUM 5.9 mmol/L (3.5-5.1)
[2024-03-10 10:49] LABS: ALBUMIN 3.2 g/dL (3.4-5.0); BILIRUBIN,TOTAL 0.5 mg/dL (0.1-1.0); TOTAL PROTEIN, SERUM 7.1 g/dL (6.4-8.2)
[2024-03-10] MEDS: LORazepam 1 MG TABLET PO ONE (11:31)
[2024-03-10] MEDS: ONDANSETRON HCL 4 MG/2 ML VIAL IVP ONE (11:31)
[2024-03-10] MEDS ORDERED: HEPARIN SODIUM,PORCINE 1,000 UNITS/ML VIAL IVP ONE (12:00)
[2024-03-10] MEDS ORDERED: DiphenhydrAMINE HCL 50 MG/ML VIAL IVP ONE (12:00)
[2024-03-10] MEDS ORDERED: DEXTROSE 50%-WATER 25 GM/50 ML SYRINGE IVP PRN (12:30)
[2024-03-10] MEDS ORDERED: ONDANSETRON HCL 4 MG/2 ML VIAL IVP PRN (12:30)
[2024-03-10] MEDS ORDERED: ACETAMINOPHEN 325 MG TABLET PO PRN (12:30)
[2024-03-10] MEDS: AmLODIPine BESYLATE 10 MG TABLET PO SCH ×2 (13:36→14:48)
[2024-03-10] MEDS ORDERED: SODIUM CHLORIDE 0.9% 1,000 ML ONE (13:57)
[2024-03-10] MEDS ORDERED: CloNIDine HCL 0.1 MG TABLET ONE (14:45)
[2024-03-10] MEDS: CloNIDine HCL 0.1 MG TABLET PO PRN (14:48)
[2024-03-10] MEDS: LOSARTAN POTASSIUM 50 MG TABLET PO SCH (15:47)
[2024-03-10] MEDS: INSULIN LISPRO 100 UNITS/ML SQ PRN (20:29)
[2024-03-10] MEDS: DOCUSATE SODIUM 100 MG CAPSULE PO SCH (20:29)
[2024-03-10] MEDS ORDERED: BusPIRone HCL 10 MG TABLET PO SCH (22:00)
[2024-03-10] MEDS ORDERED: BusPIRone HCL 5 MG TABLET PO SCH (22:00)
[2024-03-10] MEDS: BusPIRone HCL 15 MG TABLET PO SCH (22:30)
[2024-03-11 00:22] VITALS: BP 132/78; PULSE 84; RESP 16; TEMP 98.2
[2024-03-11 04:30] VITALS: BP 134/82; PULSE 82; RESP 16; TEMP 98.1
[2024-03-11] MEDS: FAMOTIDINE 20 MG TABLET PO SCH (08:21)
[2024-03-11 08:24] VITALS: BP 139/80; PULSE 83; RESP 18; TEMP 97.7
[2024-03-11 09:41] LABS: GLUCOMETER DEV NAME(LOC) 5S.1B; GLUCOSE,POINT OF CARE 124 MG/DL (70-110)
[2024-03-11 09:41] LABS: GLUCOMETER DEV NAME(LOC) 5N.2C; GLUCOSE,POINT OF CARE 205 MG/DL (70-110)
== END 2024-03-11 10:25 | disposition home or self-care (01) | DRG 425 ==
LOC: EMS 09:54 → EDH 12:23 → 5S 13:31
PROVIDERS: ADMIT Internal Medicine; ATTEND Internal Medicine
PROC: 5A1D70Z Performance of Urinary Filtration, Intermittent, Less than 6 Hours Per Day (ICD-10-PCS; principal; 2024-03-10)
DX: E87.5 Hyperkalemia (principal); D63.1 Anemia in chronic kidney disease; I12.0 Hypertensive chronic kidney disease with stage 5 chronic kidney disease or end stage renal disease; N18.6 End stage renal disease; I95.9 Hypotension, unspecified; E11.22 Type 2 diabetes mellitus with diabetic chronic kidney disease; Z99.2 Dependence on renal dialysis; I25.10 Atherosclerotic heart disease of native coronary artery without angina pectoris; F41.1 Generalized anxiety disorder; E78.00 Pure hypercholesterolemia, unspecified; Z95.1 Presence of aortocoronary bypass graft; Z59.00 Homelessness unspecified; Z79.82 Long term (current) use of aspirin; Z79.899 Other long term (current) drug therapy
CPT/HCPCS: 80053; 83690; 84132; 85025; 90935; 93005; 99285; J1200; J1644; J2405; J7030

== ENCOUNTER 2024-03-23 21:45 | Inpatient (IN) | payer OTHER ==
[~2024-03-23] VITALS: Ht 162.6 cm; Wt 71.5 kg
[~2024-03-23 21:45] MED LIST changes: -ACET-784 PO; -BISA-72 PO; +BUSP10TA23 PO; +BUSP5TAB20 PO; -CHLO25TA3 PO; -EPOE10006 SQ; -FURO40 PO; -INSLAN SQ; -INSU100V SQ; -MAGN-169 PO; -SEVE800T38 PO; -SILD20TA14 PO
[2024-03-23 22:48] LABS: BASOPHILS % (AUTO) 0.9 % (0.0-2.0); EOSINOPHILS % (AUTO) 10.7 % (1.0-6.0); HEMATOCRIT 26.4 % (41-53); HEMOGLOBIN 8.5 g/dL (13.5-17.5); LYMPHOCYTES # (AUTO) 1.3 K/uL (1.0-4.8); LYMPHOCYTES % (AUTO) 19.3 % (22.0-44.0); MEAN CORPUSCULAR HEMOGLOBIN 29.4 pg (26.0-34.0); MEAN CORPUSCULAR HGB CONC 32.2 G/dL (31.0-37.0); MEAN CORPUSCULAR VOLUME 91 fL (80-100); MONOCYTES # (AUTO) 0.4 K/uL (0.1-1.0); MONOCYTES % (AUTO) 6.6 % (2.0-9.0); NEUTROPHILS # (AUTO) 4.2 K/uL (1.8-7.7); NEUTROPHILS % (AUTO) 62.5 % (40.0-70.0); PLATELET COUNT (AUTO) 195 K/uL (150-450); RED BLOOD CELL COUNT(AUTO) 2.89 MIL/uL (4.50-5.90); RED CELL DISTRIBUTION WIDTH 16.5 % (11.5-14.5); WHITE BLOOD COUNT (AUTO) 6.7 K/uL (4.5-11.0)
[2024-03-23 23:03] LABS: ALBUMIN 2.8 g/dL (3.4-5.0); BILIRUBIN,TOTAL 0.4 mg/dL (0.1-1.0); CALCIUM, TOTAL 7.3 mg/dL (8.8-10.5); CREATININE 12.87 mg/dL (0.60-1.30); TOTAL PROTEIN, SERUM 6.4 g/dL (6.4-8.2)
[2024-03-23 23:05] LABS: TROPONIN I-HIGH SENSITIVITY 54 ng/L (<76)
[2024-03-23 23:12] LABS: POTASSIUM 6.2 mmol/L (3.5-5.1)
[2024-03-24] VITALS (14 sets, daily range): BP systolic 116–176; BP diastolic 78–112; PULSE 85–100; RESP 16–18; TEMP 97.7–98
[2024-03-24] MEDS: SODIUM ZIRCONIUM CYCLOSILICATE 5 GM POWDER PACKET PO ONE (00:24)
[2024-03-24] MEDS: LORazepam 1 MG TABLET PO ONE ×2 (00:24→02:12)
[2024-03-24 02:05] LABS: LACTIC ACID 0.5 mmol/L (0.4-2.0)
[2024-03-24] MEDS: HydrALAZINE HCL 20 MG/ML VIAL IVP ONE (09:00)
[2024-03-24] MEDS ORDERED: ONDANSETRON HCL 4 MG/2 ML VIAL IVP PRN (12:45)
[2024-03-24] MEDS ORDERED: ACETAMINOPHEN 325 MG TABLET PO PRN (12:45)
[2024-03-24] MEDS ORDERED: DEXTROSE 50%-WATER 25 GM/50 ML SYRINGE IVP PRN (12:45)
[2024-03-24] MEDS ORDERED: LORazepam 0.5 MG TABLET PO PRN (13:00)
[2024-03-24] MEDS: AmLODIPine BESYLATE 10 MG TABLET PO SCH (13:01)
[2024-03-24] MEDS: LORazepam 2 MG/ML VIAL IVP ONE (14:33)
[2024-03-24 15:03] LABS: CALCIUM, TOTAL 7.2 mg/dL (8.8-10.5); CREATININE 11.78 mg/dL (0.60-1.30); POTASSIUM 5.3 mmol/L (3.5-5.1)
[2024-03-24 15:29] LABS: APPEARANCE,URINE CLEAR (CLEAR); BILIRUBIN,URINE NEGATIVE (NEGATIVE); COLOR,URINE LIGHT YELLOW (YELLOW); GLUCOSE, URINE (UA) 300-500 mg/dL (NEGATIVE); KETONES,URINE TRACE mg/dL (NEGATIVE); LEUKOCYTE ESTERASE ,URINE NEGATIVE (NEGATIVE); NITRATE,URINE NEGATIVE (NEGATIVE); OCCULT BLOOD,URINE MODERATE (NEGATIVE); PH,URINE 7.5 (5.0-8.0); PROTEIN,URINE 300-600,SEE CONFIRM mg/dL (NEGATIVE); SPECIFIC GRAVITIY, URINE 1.012 (1.003-1.030); UROBILINOGEN,URINE <=1.0 mg/dL (<=1.0)
[2024-03-24 15:38] LABS: SULFOSALICYLIC ACID,URINE 4+ (Negative)
[2024-03-24 15:40] LABS: BACTERIA,URINE None Seen /HPF (None Seen); RBC,URINE 0-2 /HPF (0-2)
[2024-03-24] MEDS: HEPARIN SODIUM,PORCINE 5,000 UNITS/ML VIAL SQ SCH (16:00)
[2024-03-24] MEDS: ALTEPLASE 2 MG VIAL/STERILE WATER IVCATH ONE ×2 (18:45→18:46)
[2024-03-24] MEDS: CALCIUM ACETATE 667 MG CAPSULE PO SCH (19:02)
[2024-03-24 20:20] LABS: GLUCOMETER DEV NAME(LOC) 5S.2D; GLUCOSE,POINT OF CARE 82 MG/DL (70-110)
[2024-03-24] MEDS: INSULIN LISPRO 100 UNITS/ML SQ PRN (21:20)
[2024-03-24] MEDS: DOCUSATE SODIUM 100 MG CAPSULE PO SCH (21:21)
[2024-03-24] MEDS: HydrALAZINE HCL 20 MG/ML VIAL IVP PRN (21:21)
[2024-03-24] MEDS: QUEtiapine FUMARATE 25 MG TABLET PO SCH (21:23)
[2024-03-25 00:09] VITALS: BP 130/73; PULSE 84; RESP 18; TEMP 98.2
[2024-03-25 04:08] VITALS: BP 151/85; PULSE 85; RESP 18; TEMP 98
[2024-03-25 07:28] LABS: BASOPHILS % (AUTO) 1.6 % (0.0-2.0); EOSINOPHILS % (AUTO) 9.9 % (1.0-6.0); HEMATOCRIT 27.5 % (41-53); HEMOGLOBIN 9.3 g/dL (13.5-17.5); LYMPHOCYTES # (AUTO) 0.8 K/uL (1.0-4.8); LYMPHOCYTES % (AUTO) 12.7 % (22.0-44.0); MEAN CORPUSCULAR HEMOGLOBIN 30.4 pg (26.0-34.0); MEAN CORPUSCULAR HGB CONC 33.8 G/dL (31.0-37.0); MEAN CORPUSCULAR VOLUME 90 fL (80-100); MONOCYTES # (AUTO) 0.4 K/uL (0.1-1.0); MONOCYTES % (AUTO) 6.5 % (2.0-9.0); NEUTROPHILS # (AUTO) 4.5 K/uL (1.8-7.7); NEUTROPHILS % (AUTO) 69.3 % (40.0-70.0); PLATELET COUNT (AUTO) 217 K/uL (150-450); RED BLOOD CELL COUNT(AUTO) 3.05 MIL/uL (4.50-5.90); WHITE BLOOD COUNT (AUTO) 6.5 K/uL (4.5-11.0)
[2024-03-25 07:34] LABS: CALCIUM, TOTAL 7.7 mg/dL (8.8-10.5); CREATININE 8.13 mg/dL (0.60-1.30); POTASSIUM 4.2 mmol/L (3.5-5.1)
[2024-03-25 07:39] VITALS: BP 159/94; PULSE 84; RESP 18; TEMP 98.1
[2024-03-25] MEDS: FAMOTIDINE 20 MG TABLET PO SCH (08:43)
[2024-03-25] MEDS: ASPIRIN 81 MG CHEWABLE TABLET PO SCH (08:43)
[2024-03-25] MEDS: ATORVASTATIN CALCIUM 20 MG TABLET PO SCH (08:44)
[2024-03-25 11:07] VITALS: BP 151/91; PULSE 87; RESP 18; TEMP 98.2
[2024-03-25 20:21] LABS: GLUCOMETER DEV NAME(LOC) 5S.2D; GLUCOSE,POINT OF CARE 165 MG/DL (70-110)
[2024-03-25 20:21] LABS: GLUCOMETER DEV NAME(LOC) 5S.2D; GLUCOSE,POINT OF CARE 88 MG/DL (70-110)
[2024-03-25 20:21] LABS: GLUCOMETER DEV NAME(LOC) 5S.2D; GLUCOSE,POINT OF CARE 199 MG/DL (70-110)
== END 2024-03-25 13:14 | disposition home or self-care (01) | DRG 425 ==
LOC: EMS 21:46 → EDH 03-24 08:53 → 5S 03-24 09:37
PROVIDERS: ADMIT Hospitalist; ATTEND Hospitalist
PROC: 5A1D70Z Performance of Urinary Filtration, Intermittent, Less than 6 Hours Per Day (ICD-10-PCS; principal; 2024-03-24)
DX: E87.5 Hyperkalemia (principal); I12.0 Hypertensive chronic kidney disease with stage 5 chronic kidney disease or end stage renal disease; E11.22 Type 2 diabetes mellitus with diabetic chronic kidney disease; N18.6 End stage renal disease; D63.1 Anemia in chronic kidney disease; E83.39 Other disorders of phosphorus metabolism; F41.1 Generalized anxiety disorder; F32.A Depression, unspecified; I25.10 Atherosclerotic heart disease of native coronary artery without angina pectoris; E78.00 Pure hypercholesterolemia, unspecified; Z99.2 Dependence on renal dialysis; Z91.158 Patient's noncompliance with renal dialysis for other reason; Z91.199 Patient's noncompliance with other medical treatment and regimen due to unspecified reason; Z59.00 Homelessness unspecified; Z95.5 Presence of coronary angioplasty implant and graft; Z95.1 Presence of aortocoronary bypass graft; Z79.01 Long term (current) use of anticoagulants; Z79.899 Other long term (current) drug therapy; Z83.3 Family history of diabetes mellitus; Z82.49 Family history of ischemic heart disease and other diseases of the circulatory system
CPT/HCPCS: 71045; 80048; 80053; 81001; 81002; 82962; 83605; 84145; 84484; 85025; 87340; 90935; 93005; 99285; J0360; J1644; J2060; J2997; 36415-L1; 36415-TC

== ENCOUNTER 2024-03-27 22:39 | Emergency (ER) | payer OTHER ==
[~2024-03-27] VITALS: Ht 162.6 cm; Wt 72.7 kg
[~2024-03-27 22:39] MED LIST changes: -BUSP5TAB20 PO
[2024-03-27 22:42] VITALS: BP 141/89; PULSE 84; RESP 16; TEMP 97.5
[2024-03-27] MEDS: LORazepam 1 MG TABLET PO ONE (23:01)
== END 2024-03-27 23:04 | disposition home or self-care (01) ==
LOC: EMS 22:39
DX: F41.9 Anxiety disorder, unspecified (principal); E11.9 Type 2 diabetes mellitus without complications; E78.00 Pure hypercholesterolemia, unspecified; I25.10 Atherosclerotic heart disease of native coronary artery without angina pectoris; I10 Essential (primary) hypertension; Z98.890 Other specified postprocedural states; Z59.00 Homelessness unspecified
CPT/HCPCS: 99283

== ENCOUNTER 2024-04-02 09:54 | Emergency (ER) | payer OTHER ==
[~2024-04-02] VITALS: Ht 162.6 cm; Wt 66.3 kg
[2024-04-02 09:58] VITALS: TEMP 98.2
[2024-04-02 10:26] LABS: BASOPHILS % (AUTO) 1.5 % (0.0-2.0); EOSINOPHILS % (AUTO) 9.6 % (1.0-6.0); HEMATOCRIT 28.9 % (41-53); HEMOGLOBIN 9.4 g/dL (13.5-17.5); LYMPHOCYTES % (AUTO) 14.4 % (22.0-44.0); MEAN CORPUSCULAR HEMOGLOBIN 29.3 pg (26.0-34.0); MEAN CORPUSCULAR HGB CONC 32.5 G/dL (31.0-37.0); MEAN CORPUSCULAR VOLUME 90 fL (80-100); MONOCYTES # (AUTO) 0.5 K/uL (0.1-1.0); NEUTROPHILS # (AUTO) 4.5 K/uL (1.8-7.7); NEUTROPHILS % (AUTO) 66.5 % (40.0-70.0); PLATELET COUNT (AUTO) 256 K/uL (150-450); RED CELL DISTRIBUTION WIDTH 14.8 % (11.5-14.5); WHITE BLOOD COUNT (AUTO) 6.8 K/uL (4.5-11.0)
[2024-04-02 10:33] LABS: CALCIUM, TOTAL 8.3 mg/dL (8.8-10.5); CREATININE 10.31 mg/dL (0.60-1.30); POTASSIUM 4.3 mmol/L (3.5-5.1)
[2024-04-02] MEDS: LORazepam 1 MG TABLET PO ONE (14:18)
[2024-04-02] MEDS ORDERED: LORA-999 PO (14:28)
[2024-04-02 14:32] VITALS: BP 121/80; PULSE 89; RESP 16
== END 2024-04-02 14:36 | disposition home or self-care (01) ==
LOC: EMS 10:01
DX: F41.9 Anxiety disorder, unspecified (principal); I12.0 Hypertensive chronic kidney disease with stage 5 chronic kidney disease or end stage renal disease; E11.22 Type 2 diabetes mellitus with diabetic chronic kidney disease; N18.6 End stage renal disease
CPT/HCPCS: 80048; 82962; 85025; 99283

== ENCOUNTER 2024-05-02 15:54 | Emergency (ER) | payer OTHER ==
[~2024-05-02] VITALS: Ht 170.2 cm; Wt 72.7 kg
[~2024-05-02 15:54] MED LIST changes: +LORA-999 PO
[2024-05-02 16:09] VITALS: BP 131/70; PULSE 76; RESP 18; TEMP 97.9
[2024-05-02] MEDS ORDERED: ATOR40TA71 PO (16:16)
[2024-05-02] MEDS ORDERED: LIDO1ADH63 TP (16:16)
[2024-05-02] MEDS ORDERED: LORA-1000 PO (16:16)
[2024-05-02] MEDS ORDERED: METO75TA PO (16:16)
[2024-05-02] MEDS ORDERED: RAMI10CA78 PO (16:16)
[2024-05-02] MEDS ORDERED: QUET50TA24 PO (16:16)
[2024-05-02] MEDS ORDERED: SERT-440 PO (16:16)
[2024-05-02] MEDS ORDERED: QUET25TA36 PO (16:16)
[2024-05-02] MEDS ORDERED: ONDA-243 PO (16:16)
[2024-05-02] MEDS ORDERED: FURO20TA4 PO (16:16)
[2024-05-02] MEDS ORDERED: SEVE800T38 PO (16:16)
[2024-05-02] MEDS ORDERED: SERT-439 PO (16:16)
[2024-05-02] MEDS ORDERED: PRAM0.129 PO (16:16)
[2024-05-02] MEDS ORDERED: AMLO10TA55 PO (16:16)
[2024-05-02] MEDS ORDERED: PANT40TA54 PO (16:16)
[2024-05-02] MEDS ORDERED: ACET-66 PO (16:16)
== END 2024-05-02 18:42 | disposition left against medical advice (07) ==
LOC: EMS 15:54
DX: G47.00 Insomnia, unspecified (principal); Z53.21 Procedure and treatment not carried out due to patient leaving prior to being seen by health care provider
CPT/HCPCS: 82962

== ENCOUNTER 2024-05-31 12:53 | Emergency (ER) | payer OTHER ==
[~2024-05-31] VITALS: Ht 162.6 cm; Wt 65.9 kg
[~2024-05-31 12:53] MED LIST changes: -AMLO-258 PO; +AMLO10TA55 PO; -ATOR-2 PO; +ATOR40TA71 PO; -CHOL200059 PO; +CHOL25TA4 PO; -CLOP75TA60 PO; -FOLI1TAB85 PO; +FURO20TA4 PO; -HYDR10TA31 PO; -HYDR50CA6 PO; +LABE100T51 PO; -LORA-999 PO; -METO50 PO; +PANT40TA54 PO; +QUET25TA36 PO; +SERT-440 PO; +SEVE800T38 PO; -TRAZ-252 PO
[2024-05-31 13:09] VITALS: TEMP 98
[2024-05-31 13:56] LABS: BASOPHILS % (AUTO) 1.1 % (0.0-2.0); EOSINOPHILS % (AUTO) 8.8 % (1.0-6.0); HEMATOCRIT 27.9 % (41-53); HEMOGLOBIN 9.3 g/dL (13.5-17.5); LYMPHOCYTES # (AUTO) 0.9 K/uL (1.0-4.8); LYMPHOCYTES % (AUTO) 12.1 % (22.0-44.0); MEAN CORPUSCULAR HEMOGLOBIN 30.2 pg (26.0-34.0); MEAN CORPUSCULAR HGB CONC 33.5 G/dL (31.0-37.0); MEAN CORPUSCULAR VOLUME 90 fL (80-100); MONOCYTES # (AUTO) 0.5 K/uL (0.1-1.0); MONOCYTES % (AUTO) 6.3 % (2.0-9.0); NEUTROPHILS # (AUTO) 5.3 K/uL (1.8-7.7); NEUTROPHILS % (AUTO) 71.7 % (40.0-70.0); PLATELET COUNT (AUTO) 200 K/uL (150-450); RED BLOOD CELL COUNT(AUTO) 3.09 MIL/uL (4.50-5.90); RED CELL DISTRIBUTION WIDTH 18.8 % (11.5-14.5); WHITE BLOOD COUNT (AUTO) 7.4 K/uL (4.5-11.0)
[2024-05-31 14:08] LABS: CALCIUM, TOTAL 8.2 mg/dL (8.8-10.5); CREATININE 6.55 mg/dL (0.60-1.30); POTASSIUM 4.9 mmol/L (3.5-5.1)
[2024-05-31] MEDS ORDERED: TRAM50TA5 PO (15:31)
[2024-05-31] MEDS: TraMADol HCL 50 MG TABLET PO ONE (16:08)
[2024-05-31 16:09] VITALS: BP 148/86; PULSE 72; RESP 18; O2SAT 99
== END 2024-05-31 16:32 | disposition home or self-care (01) ==
LOC: EMS 12:53
DX: S20.211A Contusion of right front wall of thorax, initial encounter (principal); E11.9 Type 2 diabetes mellitus without complications; I10 Essential (primary) hypertension; W22.8XXA Striking against or struck by other objects, initial encounter; Y93.89 Activity, other specified; Y92.89 Other specified places as the place of occurrence of the external cause; Y99.8 Other external cause status
CPT/HCPCS: 71101; 80048; 82962; 85025; 93005; 99285

== ENCOUNTER 2024-08-20 08:27 | Emergency (ER) | payer OTHER ==
[~2024-08-20] VITALS: Ht 162.6 cm; Wt 66.4 kg
[~2024-08-20 08:27] MED LIST changes: +TRAM50TA5 PO
[2024-08-20 08:36] VITALS: TEMP 97.4
[2024-08-20] MEDS: DIPHENOXYLATE/ATROP 2.5-0.025 MG TABLET PO ONE (09:05)
[2024-08-20] MEDS: LORazepam 1 MG TABLET PO ONE (09:05)
[2024-08-20 09:30] VITALS: BP 194/105; PULSE 79; RESP 18; O2SAT 98
[2024-08-20] MEDS: HydrALAZINE HCL 10 MG TABLET PO ONE (09:52)
[2024-08-22] MEDS ORDERED: METO50 PO (17:37)
[2024-08-22] MEDS ORDERED: ATOR-2 PO (17:37)
[2024-08-22] MEDS ORDERED: EZET10TA57 PO (17:37)
[2024-08-22] MEDS ORDERED: RAMI10CA78 PO (17:37)
[2024-08-22] MEDS ORDERED: CHLO25TA3 PO (17:37)
[2024-08-22] MEDS ORDERED: FURO40TA6 PO (17:37)
[2024-08-22] MEDS ORDERED: HYDR10TA31 PO (17:37)
== END 2024-08-20 09:59 | disposition home or self-care (01) ==
LOC: EMS 08:28
DX: R19.7 Diarrhea, unspecified (principal); I25.10 Atherosclerotic heart disease of native coronary artery without angina pectoris; E78.00 Pure hypercholesterolemia, unspecified; I12.0 Hypertensive chronic kidney disease with stage 5 chronic kidney disease or end stage renal disease; E11.22 Type 2 diabetes mellitus with diabetic chronic kidney disease; N18.6 End stage renal disease; Z79.82 Long term (current) use of aspirin; Z59.00 Homelessness unspecified; Z79.899 Other long term (current) drug therapy
CPT/HCPCS: 99284; Z7502; Z7610

== ENCOUNTER 2024-09-20 06:15 | Inpatient (IN) | payer OTHER ==
[~2024-09-20] VITALS: Ht 162.6 cm; Wt 69.9 kg
[2024-09-20] VITALS (11 sets, daily range): BP systolic 117–203; BP diastolic 88–127; PULSE 72–92; RESP 18–20; TEMP 98.4; O2SAT 100
[~2024-09-20 06:15] MED LIST changes: +ATOR-2 PO; -ATOR40TA71 PO; +EZET10TA57 PO; -FURO20TA4 PO; +FURO40TA6 PO; +HYDR10TA31 PO; -LABE100T51 PO; +METO50 PO; -TRAM50TA5 PO
[2024-09-20 06:52] LABS: COVID AG,FIA SOURCE NASAL SWAB
[2024-09-20 07:38] LABS: BASOPHILS % (AUTO) 1.4 % (0.0-2.0); EOSINOPHILS % (AUTO) 5.5 % (1.0-6.0); HEMATOCRIT 37.2 % (41-53); LYMPHOCYTES # (AUTO) 0.9 K/uL (1.0-4.8); LYMPHOCYTES % (AUTO) 14.5 % (22.0-44.0); MEAN CORPUSCULAR HEMOGLOBIN 29.4 pg (26.0-34.0); MEAN CORPUSCULAR HGB CONC 32.4 G/dL (31.0-37.0); MEAN CORPUSCULAR VOLUME 91 fL (80-100); MONOCYTES # (AUTO) 0.4 K/uL (0.1-1.0); MONOCYTES % (AUTO) 6.7 % (2.0-9.0); NEUTROPHILS # (AUTO) 4.4 K/uL (1.8-7.7); NEUTROPHILS % (AUTO) 71.9 % (40.0-70.0); PLATELET COUNT (AUTO) 211 K/uL (150-450); RED BLOOD CELL COUNT(AUTO) 4.09 MIL/uL (4.50-5.90); RED CELL DISTRIBUTION WIDTH 17.5 % (11.5-14.5); WHITE BLOOD COUNT (AUTO) 6.2 K/uL (4.5-11.0)
[2024-09-20] MEDS: LORazepam 1 MG TABLET PO ONE (07:43)
[2024-09-20 07:56] LABS: ANION GAP 22 mmol/L (8-16); CALCIUM, TOTAL 8.1 mg/dL (8.8-10.5); CARBON DIOXIDE 19 mmol/L (22-29); CHLORIDE 94 mmol/L (98-107); CREATININE 16.34 mg/dL (0.60-1.30); GLOMERULAR FILTR. RATE CALC 3 mL/min (>60); GLUCOSE,RANDOM 132 mg/dL (70-110); POTASSIUM 5.5 mmol/L (3.5-5.1); SODIUM SERUM 135 mmol/L (136-145)
[2024-09-20 08:04] LABS: TROPONIN I-HIGH SENSITIVITY 64 ng/L (<76)
[2024-09-20 08:07] LABS: INFLUENZA TYPE A NEGATIVE FOR TYPE A (NEGATIVE); INFLUENZA TYPE B NEGATIVE FOR TYPE B (NEGATIVE); SARS-COV2 (COVID) ANTIGEN,FIA Negative (Negative)
[2024-09-20 08:09] LABS: UREA NITROGEN, BLOOD 136 mg/dL (7-18)
[2024-09-20 08:21] LABS: B-TYPE NATRIURETIC PEPTIDE > 5000 pg/mL (0-100)
[2024-09-20 08:26] LABS: ALANINE AMINOTRANSFERASE 18 U/L (12-78); ALBUMIN 3.3 g/dL (3.4-5.0); ALKALINE PHOSPHATASE 161 U/L (46-116); ASPARTATE AMINOTRANSFERASE 12 U/L (15-37); BILIRUBIN,TOTAL 0.7 mg/dL (0.1-1.0); CREATINE KINASE, TOTAL ONLY 564 U/L (39-308); TOTAL PROTEIN, SERUM 7.7 g/dL (6.4-8.2)
[2024-09-20] MEDS ORDERED: HEPARIN SODIUM,PORCINE 1,000 UNITS/ML VIAL ONE (12:00)
[2024-09-20] MEDS ORDERED: MAGNESIUM HYDROXIDE SUSPENSION 30 ML UDCUP PO PRN (15:15)
[2024-09-20] MEDS ORDERED: HYDROCODONE/ACETAMINOPHEN 5-325 MG TABLET PO PRN (15:15)
[2024-09-20] MEDS ORDERED: BISACODYL 10 MG RECTAL RECTAL SUPPOSITORY PR PRN (15:15)
[2024-09-20] MEDS ORDERED: ONDANSETRON HCL 4 MG/2 ML VIAL IVP PRN (15:15)
[2024-09-20] MEDS ORDERED: MORPHINE SULFATE 2 MG/ML SYRINGE IVP PRN (15:15)
[2024-09-20] MEDS: HEPARIN SODIUM,PORCINE 5,000 UNITS/ML VIAL SQ SCH (16:00)
[2024-09-20 17:47] LABS: CALCIUM, TOTAL 7.5 mg/dL (8.8-10.5); CREATININE 16.9 mg/dL (0.60-1.30)
[2024-09-20 17:56] LABS: TROPONIN I-HIGH SENSITIVITY 57 ng/L (<76)
[2024-09-20] MEDS ORDERED: SODIUM CHLORIDE 0.9% 1,000 ML ONE (18:43)
[2024-09-20] MEDS: DOCUSATE SODIUM 100 MG CAPSULE PO SCH (21:00)
[2024-09-20] MEDS: HydrALAZINE HCL 10 MG TABLET PO SCH (21:29)
[2024-09-20] MEDS: RANOLAZINE 500 MG ER TABLET PO SCH (21:30)
[2024-09-20] MEDS: QUEtiapine FUMARATE 25 MG TABLET PO SCH (21:31)
[2024-09-20] MEDS: METOPROLOL TARTRATE 50 MG TABLET PO SCH (21:31)
[2024-09-20] MEDS: ATORVASTATIN CALCIUM 40 MG TABLET PO SCH (21:31)
[2024-09-20] MEDS: ACETAMINOPHEN 325 MG TABLET PO PRN (22:03)
[2024-09-20] MEDS: ZOLPIDEM TARTRATE 5 MG TABLET PO PRN (22:57)
[2024-09-20] MEDS: HEPARIN SODIUM,PORCINE 1,000 UNITS/ML VIAL IVCATH ONE ×2 (23:26)
[2024-09-21] VITALS (15 sets, daily range): BP systolic 106–173; BP diastolic 57–100; PULSE 60–85; RESP 18–19; TEMP 95.9–98.8; O2SAT 96–100
[2024-09-21] MEDS: HydrOXYzine HCL 50 MG TABLET PO ONE (00:53)
[2024-09-21] MEDS: PANTOPRAZOLE SODIUM 40 MG DR TABLET PO SCH (08:32)
[2024-09-21] MEDS: SEVELAMER CARBONATE 800 MG TABLET PO SCH (08:32)
[2024-09-21] MEDS: FUROSEMIDE 40 MG TABLET PO SCH (08:33)
[2024-09-21] MEDS: AmLODIPine BESYLATE 10 MG TABLET PO SCH (08:33)
[2024-09-21] MEDS: ASPIRIN 81 MG DR TABLET PO SCH (08:34)
[2024-09-21] MEDS: EZETIMIBE 10 MG TABLET PO SCH (08:54)
[2024-09-21] MEDS ORDERED: PANTOPRAZOLE SODIUM 40 MG DR TABLET PO SCH (09:00)
[2024-09-21 10:40] LABS: BASOPHILS % (AUTO) 1.2 % (0.0-2.0); EOSINOPHILS % (AUTO) 5.4 % (1.0-6.0); HEMATOCRIT 30.7 % (41-53); HEMOGLOBIN 10.3 g/dL (13.5-17.5); LYMPHOCYTES # (AUTO) 0.6 K/uL (1.0-4.8); LYMPHOCYTES % (AUTO) 9.7 % (22.0-44.0); MEAN CORPUSCULAR HEMOGLOBIN 30.2 pg (26.0-34.0); MEAN CORPUSCULAR HGB CONC 33.7 G/dL (31.0-37.0); MEAN CORPUSCULAR VOLUME 90 fL (80-100); MONOCYTES # (AUTO) 0.5 K/uL (0.1-1.0); MONOCYTES % (AUTO) 8.6 % (2.0-9.0); NEUTROPHILS # (AUTO) 4.5 K/uL (1.8-7.7); NEUTROPHILS % (AUTO) 75.1 % (40.0-70.0); PLATELET COUNT (AUTO) 164 K/uL (150-450); RED BLOOD CELL COUNT(AUTO) 3.42 MIL/uL (4.50-5.90); RED CELL DISTRIBUTION WIDTH 17.5 % (11.5-14.5)
[2024-09-21 10:43] LABS: CALCIUM, TOTAL 7.3 mg/dL (8.8-10.5); CREATININE 10.62 mg/dL (0.60-1.30); POTASSIUM 4.2 mmol/L (3.5-5.1)
[2024-09-21] MEDS ORDERED: DiphenhydrAMINE HCL 50 MG/ML VIAL IVP ONE (12:00)
[2024-09-21] MEDS ORDERED: HEPARIN SODIUM,PORCINE 1,000 UNITS/ML VIAL IVP ONE (12:00)
[2024-09-21] MEDS: HEPARIN SODIUM,PORCINE 1,000 UNITS/ML VIAL IVCATH ONE ×2 (16:31)
== END 2024-09-21 18:45 | disposition home or self-care (01) | DRG 194 ==
LOC: EMS 06:16 → EDH 15:20 → 5S 18:40
PROVIDERS: ADMIT Internal Medicine; ATTEND Internal Medicine
PROC: 5A1D70Z Performance of Urinary Filtration, Intermittent, Less than 6 Hours Per Day (ICD-10-PCS; principal; 2024-09-20)
PROC: 5A1D70Z Performance of Urinary Filtration, Intermittent, Less than 6 Hours Per Day (ICD-10-PCS; 2024-09-21)
DX: I11.0 Hypertensive heart disease with heart failure (principal); N18.6 End stage renal disease; D63.1 Anemia in chronic kidney disease; E11.22 Type 2 diabetes mellitus with diabetic chronic kidney disease; E83.39 Other disorders of phosphorus metabolism; E87.5 Hyperkalemia; I50.33 Acute on chronic diastolic (congestive) heart failure; I16.0 Hypertensive urgency; Z20.822 Contact with and (suspected) exposure to COVID-19; E78.00 Pure hypercholesterolemia, unspecified; I25.10 Atherosclerotic heart disease of native coronary artery without angina pectoris; F41.9 Anxiety disorder, unspecified; F32.A Depression, unspecified; Z95.1 Presence of aortocoronary bypass graft; Z99.2 Dependence on renal dialysis; Z59.00 Homelessness unspecified; Z91.158 Patient's noncompliance with renal dialysis for other reason; Z79.899 Other long term (current) drug therapy; Z79.82 Long term (current) use of aspirin; Z79.4 Long term (current) use of insulin; M47.819 Spondylosis without myelopathy or radiculopathy, site unspecified; Z91.199 Patient's noncompliance with other medical treatment and regimen due to unspecified reason
CPT/HCPCS: 71045; 80048; 80076; 82550; 83880; 84484; 85025; 87340; 87804; 90935; 93005; 99285; G0378; J1200; J1644; J7030; 36415-L1; 36415-TC